=== PATIENT | female | born 1940 | race Caucasian/White ===

== ENCOUNTER 2024-08-01 14:18 | Emergency (ER) | payer OTHER, SELFPAY ==
--- NOTE | 2024-08-01 15:16 | PC.NURSE ---
PT did not answer when name was called from the lobby and was not found outside.
[2024-08-01 15:18] VITALS: BP 144/86; PULSE 73; RESP 16; TEMP 36.9; O2SAT 96; BMI 27.6
--- NOTE | 2024-08-01 15:37 | XR_ITS ---
Examination: Knee, left , 3 views Technique: Knee AP, lateral, oblique 3 views Date and time of exam: August 01, 2024 1544 hrs. Indications: Injury to the knee 2 weeks ago with knee pain. Findings: Severe narrowing medial joint space Significant osteoarthritis lateral patellofemoral joints No fracture Small to moderate knee effusion Impression: No fracture Small to moderate knee effusion
--- NOTE | 2024-08-01 17:18 | PD.EDFALL ---
ED Fall Injury RME/HPI General Chief Complaint: Fall Stated Complaint: LEFT LEG PAIN S/P FALL Time Seen by Provider: 08/01/24 15:06 Arrival date/time: 08/01/24 14:18 Patient is an 83-year-old female who presents to the emergency department complaining of left knee pain. Patient states she fell several days ago. She said she landed on her bilateral knees and had pain for a day or 2. Related Data Allergies Allergy/AdvReac Type Severity Reaction Status Date / Time milk Allergy Unknown Unverified 08/01/24 14:24 SEAFOOD Allergy Unknown Uncoded 08/01/24 14:24 Review of Systems Review of Systems Systems Reviewed: All systems reviewed, normal except as documented Past Medical History Social History SMOKING STATUS: Never smoker ED Exam Narrative Physical exam: GENERAL APPEARANCE: alert and oriented x 4, well-developed, well-nourished, no acute distress VITALS: All vitals were reviewed and the pulse ox is 96% on room air, which is normal according to my interpretation. HEENT: Normocephalic, atraumatic; pupils equal, round, reactive to light; EOMI; mucous membranes pink, moist; oropharynx clear NECK: Supple LUNGS: CTABL; no wheezes, no rales, no rhonchi HEART: Regular rate, regular rhythm; normal S1, S2; no murmurs ABDOMEN: non distended; normal BS; soft, no tenderness, no guarding, no rebound; no masses, no organomegaly, no hernia BACK: no CVA tenderness EXTREMITIES: atraumatic; no edema NEUROLOGIC: awake; alert and oriented x4; cranial nerves II-XII grossly intact; no focal sensory or motor deficits PSYCHIATRIC: appropriate mood and affect SKIN: warm, dry, normal color; no rashes; abrasion over the right knee Course Quality Measures none Orders Category Date Time Status Miscellaneous Nursing Order NOW Care 08/01/24 17:26 Completed baldo wrap [Splint / Immobilizer] STAT Care 08/01/24 20:41 Completed XR knee LT 3V Stat Exams 08/01/24 15:37 Completed Vital Signs Vital signs: Vital Signs Temperature 98.4 F 08/01/24 15:18 Pulse Rate 73 08/01/24 15:18 Respiratory Rate 16 08/01/24 15:18 Blood Pressure 144/86 H 08/01/24 15:18 Pulse Oximetry (%) 96 08/01/24 15:18 Oxygen Delivery Method Room Air 08/01/24 15:18 Fall Patient data External records reviewed:: [facility] previous records (Per chart review, patient has no previous ED visits or admissions to this facility.) Clinical information provided by:: patient Social determinants that could affect healthcare access:: none Patient has the following chronic illnesses:: none How is presenting disease/condition affected by chronic disease/condition?: no chronic disease Evaluation data The following diagnostics were reviewed and interpreted by me:: radiology exam(s) Lab and/or radiology exams considered but not ordered:: none Discharge Plan Plan Patient Disposition: HOME (Self Care) Disposition Comment: Stable for discharge Patient condition on transfer: Stable Prescriptions/Referrals Referrals: Lupe Whittington NP [Primary Care Provider] - In 1 week Problem List Clinical Impression: Contusion of knee Patient/Caregiver Discharge Instructions Discharge Activity: activity as tolerated Education Materials: Bruises (Contusions), ED Contusion, Lower Extremity Additional Instructions: Please follow-up with your primary care doctor within the next several days. Your x-ray showed no fractures or dislocations. Please return to the emergency department if you notice any worsening or if you do not improve within the next several days Print Language: [place] Citizen Stand Alone Forms: Maya Award Info., Patient Portal Info Letter
--- NOTE | 2024-08-01 17:19 | EDNOTE_ITS ---
ED Fall Injury RME/HPI General Chief Complaint: Fall Stated Complaint: LEFT LEG PAIN S/P FALL Time Seen by Provider: 08/01/24 15:06 Arrival date/time: 08/01/24 14:18 RME / HPI RME / HPI Narrative: Patient is a 83 year old female presenting to the ED stating she tripped and fell 3 days ago, no LOC or head trauma, complains of left knee pain. Does not rate or describe pain at this time. Denies any symptoms prior to fall. No further history reported a this time. Related Data Allergies Allergy/AdvReac Type Severity Reaction Status Date / Time milk Allergy Unknown Unverified 08/01/24 14:24 SEAFOOD Allergy Unknown Uncoded 08/01/24 14:24 Review of Systems Review of Systems Narrative Review of Systems: Gen: No fever, no chills, no weight loss EYES: No discharge, no visual changes, no pain HEENT: No ear pain, no congestion, no sore throat PULM: No shortness of breath, no cough, no congestion CV: No chest pain, no dyspnea on exertion, no palpitations GI: No nausea, no vomiting, no diarrhea, no pain, no constipation : No frequency, no urgency, no dysuria Musc/skel: +left knee pain. no back pain Skin: No rash Psyc: No hallucinations, no depression Heme/Lymph: No easy bleeding or bruising tendencies Neuro: No weakness, no headache Past Medical History Social History SMOKING STATUS: Never smoker ED Exam Narrative Physical exam: GEN. APPEARANCE: The patient is alert awake oriented X-3 in no distress, lying down comfortably, does not look ill/toxic. Patient has good eye contact. Patient is cooperative. VITALS: All vitals were reviewed and the pulse ox is 96% on room air which is normal according to my interpretation. HEENT: Normocephalic, atraumatic. Pupils are equal and reactive. Oral mucosa is moist. Patent Nares NECK: Supple, nontender, no thyromegaly, no meningismus, no JVD, no step offs CHEST: Symmetrical, atraumatic, and with equal expansion , Nontender on palpation no deformity and no crepitus. CARDIOVASCULAR: Heart regular rhythm no murmur or gallop rub or extra beats. LUNGS: Clear to auscultation bilaterally with symmetrical chest rise. No laboring tachypnea or wheezing. No intercostal subcostal retraction. No rales and no rhonchi. ABDOMEN: Soft, flat, nontender to palpation, no guarding or rebound tenderness. There are no abnormal masses palpated. Active and normal bowel sounds. EXTREMITIES: Abrasions to bilateral knees. Mild swelling to the left knee generally. No cyanosis. Patient is able to move all 4 extremities well, with full ROM and good CSM. SKIN: Warm and dry, no jaundice or rashes noted. MUSCULOSKELETAL: No lubar or midline bony tenderness. There is no CVA tenderness. No paraspinal muscle spasm or tenderness. NEURO: Patient is RUELAS x 4, Cranial nerves II through XII grossly intact. There is no focal neurologic deficits noted. GCS is 15, PNS and BUSINESS ANALYSIS PROFESSIONAL appear grossly intact. PSYCHIATRIC: Patient is in normal mood and affect, cooperative, no SI or HI or hallucinations. Course Quality Measures none Orders Category Date Time Status Miscellaneous Nursing Order NOW Care 08/01/24 17:26 Completed mj wrap [Splint / Immobilizer] STAT Care 08/01/24 20:41 Completed XR knee LT 3V Stat Exams 08/01/24 15:37 Completed Vital Signs Vital signs: Vital Signs Temperature 98.4 F 08/01/24 15:18 Pulse Rate 73 08/01/24 15:18 Respiratory Rate 16 08/01/24 15:18 Blood Pressure 144/86 H 08/01/24 15:18 Pulse Oximetry (%) 96 08/01/24 15:18 Oxygen Delivery Method Room Air 08/01/24 15:18 Fall MDM Narrative MDM Narrative:: Patient arrives with left knee pain several days after ground-level fall. There are some mild swelling to the left knee and some mild abrasions to bilateral knees. Plain films showed no fractures or dislocations. Patient given Mj wrap with crutches. Patient refused any and all pain meds including acetaminophen and ibuprofen. She has to follow-up with her primary care doctor within the next several days Patient data External records reviewed:: [facility] previous records Clinical information provided by:: patient Social determinants that could affect healthcare access:: none Patient has the following chronic illnesses:: none How is presenting disease/condition affected by chronic disease/condition?: no chronic disease Evaluation data The following diagnostics were reviewed and interpreted by me:: radiology exam(s) Lab and/or radiology exams considered but not ordered:: none Interpretation Summary: Ordering Physician: Davis Cleary MD Date of Service: 08/01/24 Procedure(s): XR knee LT 3V Accession Number(s): [id number] cc: Lupe Whittington NP; Nasim Rodriguez MD; Davis Cleary MD~ Examination: Knee, left , 3 views Technique: Knee AP, lateral, oblique 3 views Date and time of exam: August 01, 2024 1544 hrs. Indications: Injury to the knee 2 weeks ago with knee pain. Findings: Severe narrowing medial joint space Significant osteoarthritis lateral patellofemoral joints No fracture Small to moderate knee effusion Impression: No fracture Small to moderate knee effusion Dictated By: Nasim Rodriguez MD Signed By: <Electronically signed by Nasim Rodriguez MD in OV> 08/01/24 1700 Medications / Prescriptions Medications or Prescriptions considered but not ordered:: none Medication administrations:: see above Consultations Consultation(s) initiated? (list below): No Diagnosis Fall Differential Diagnosis: other (fracture, dislocation, ligament injury) Most likely diagnosis given after review of the tests above:: knee contusion Admission Indicated Admission indicated?: not indicated Admission Request Was there a request for admission?: No Disposition Plan Disposition Plan: Discharge Discharge Attestation Discharge Attestation: The patient and all family members were given an opportunity to ask questions and understood the discharge instructions. Discharge instructions specifically effects, indications for sooner follow up or return to the emergency department, and the expected course of current diagnosis. Patient condition: Stable Discharge Plan Plan Patient Disposition: HOME (Self Care) Disposition Comment: Stable for discharge Patient condition on transfer: Stable Prescriptions/Referrals Referrals: Lupe Whittington NP [Primary Care Provider] - In 1 week Problem List Clinical Impression: Contusion of knee Patient/Caregiver Discharge Instructions Discharge Activity: activity as tolerated Education Materials: Bruises (Contusions), ED Contusion, Lower Extremity Additional Instructions: Please follow-up with your primary care doctor within the next several days. Your x-ray showed no fractures or dislocations. Please return to the emergency department if you notice any worsening or if you do not improve within the next several days Print Language: [place] Stand Alone Forms: Maya Award Info., Patient Portal Info Letter
== END 2024-08-01 20:44 | disposition home or self-care (01) ==
PROVIDERS: Emergency Provider Emergency Medicine; PCP Nurse Practitioner Family
DX: S80.02XA Contusion of left knee, initial encounter (principal); W01.0XXA Fall on same level from slipping, tripping and stumbling without subsequent striking against object, initial encounter
CPT/HCPCS: 73562; 99283

== ENCOUNTER → 2024-11-09 | Outpatient (CLI) | payer MEDICARE, SELFPAY ==
[2024-11-09 16:16] LABS: Collection Type, Urine Clean Catch
[2024-11-09 18:17] LABS: Bacteria,Urine Rare; Bilirubin,Urine Negative (Negative); Blood,Urine 1+ (Negative); Clarity,Urine Turbid (Clear/Hazy); Color,Urine Lt-Yellow (Lt Yel-Yel); Glucose, Urine Negative (Negative); Hyaline Casts,Urine < 1 /hpf (0-1); Ketones,Urine Negative (Negative); Leukocyte Esterase,Urine Positive (Negative); Nitrite,Urine Negative (Negative); Protein,Urine Trace (Neg - Trace); RBC,Urine 8 /hpf (0-3); Specific Gravity,Urine 1.015 (1.001-1.035); Squamous Epithelial Cell,Urine < 1 /hpf (0-5); Urobilinogen,Urine Negative mg/dL (0.0-1.0); WBC,Urine 129 /hpf (0-5)
== END | disposition home or self-care (01) ==
LOC: SLDO 15:31
PROVIDERS: PCP Nurse Practitioner Family; Referring Provider Nurse Practitioner Family; Visit Provider Nurse Practitioner Family
DX: N30.00 Acute cystitis without hematuria (principal)
CPT/HCPCS: 81001; 87077; 87086; 87186

== ENCOUNTER → 2024-11-10 | Outpatient (CLI) | payer MEDICARE, SELFPAY ==
[2024-11-10 11:40] LABS: Glucose Estimated Average 169 mg/dL (80-131); Hemoglobin A1C 7.5 % Hgb (4.8-6.0)
[2024-11-10 11:47] LABS: Anion Gap 10 (7-16); BUN/Creatinine Ratio 20 Ratio (12-20); Blood Urea Nitrogen 22 mg/dL (9-23); Carbon Dioxide 28.1 mMol/L (20.0-31.0); Chloride 103 mMol/L (98-107); Creatinine (Component) 1.1 mg/dL (0.6-1.3); Glucose 186 mg/dL (74-106); Osmolality,Calculated 289 (275-295); Potassium 3.6 mMol/L (3.4-5.1); Sodium 141 mMol/L (136-145); eGFR 50 See Note
[2024-11-10 12:54] LABS: Urea Breath Test Negative (Negative)
== END | disposition home or self-care (01) ==
LOC: COPL 10:50
PROVIDERS: PCP Family Medicine; Referring Provider Nurse Practitioner Family; Visit Provider Nurse Practitioner Family
DX: E11.22 Type 2 diabetes mellitus with diabetic chronic kidney disease (principal); I12.9 Hypertensive chronic kidney disease with stage 1 through stage 4 chronic kidney disease, or unspecified chronic kidney disease; N18.30 Chronic kidney disease, stage 3 unspecified; R14.1 Gas pain
CPT/HCPCS: 36415; 80048; 83013; 83014; 83036

== ENCOUNTER → 2024-12-06 | Outpatient (CLI) | payer MEDICARE, SELFPAY ==
[2024-12-06 13:20] LABS: Anion Gap 7 (7-16); BUN/Creatinine Ratio 18 Ratio (12-20); Blood Urea Nitrogen 18 mg/dL (9-23); Calcium 9.3 mg/dL (8.3-10.6); Carbon Dioxide 30.8 mMol/L (20.0-31.0); Chloride 102 mMol/L (98-107); Glucose 154 mg/dL (74-106); Osmolality,Calculated 284 (275-295); Potassium 3.3 mMol/L (3.4-5.1); Sodium 140 mMol/L (136-145); eGFR 56 See Note
[2024-12-06 13:36] LABS: Glucose Estimated Average 177 mg/dL (80-131); Hemoglobin A1C 7.8 % Hgb (4.8-6.0)
== END | disposition home or self-care (01) ==
PROVIDERS: PCP Nurse Practitioner Family; Referring Provider Nurse Practitioner Family; Visit Provider Nurse Practitioner Family
DX: E11.22 Type 2 diabetes mellitus with diabetic chronic kidney disease (principal); N18.30 Chronic kidney disease, stage 3 unspecified; E11.65 Type 2 diabetes mellitus with hyperglycemia
CPT/HCPCS: 36415; 80048; 83036

== ENCOUNTER → 2025-03-14 | Outpatient (CLI) | payer MEDICARE, SELFPAY ==
[2025-03-14 13:06] LABS: Basophils # (Auto) 0.0 Thou/mm3 (0.0-0.2); Basophils % (Auto) 0 % (0-2.5); Eosinophils # (Auto) 0.2 Thou/mm3 (0.0-0.5); Eosinophils % (Auto) 3 % (0-10); Hematocrit 42.9 % (36.0-46.0); Hemoglobin 13.9 g/dL (12.0-16.0); Immature Granulocytes Auto 0.02 Thou/mm3 (0.00-0.00); Lymphocytes # (Auto) 1.6 Thou/mm3 (1.0-4.8); Lymphocytes % (Auto) 23 % (10-50); Mean Corpuscular HGB Conc 32.4 g/dl (31.0-37.0); Mean Corpuscular Hemoglobin 28.7 pg (25.0-35.0); Mean Corpuscular Volume 89 fL (80-100); Monocytes # (Auto) 0.5 Thou/mm3 (0.0-0.8); Monocytes % (Auto) 7 % (0-12); Neutrophils # (Auto) 4.7 Thou/mm3 (1.8-7.7); Neutrophils % (Auto) 67 % (37-80); Nucleated Red Blood Cell # 0.00 Thou/mm3 (0.00-0.00); Nucleated Red Blood Cell % 0 /100 WBC (0); Platelet Count 219 Thou/mm3 (140-440); RDW Standard Deviation 41.5 fL (36.4-46.3); Red Blood Count 4.85 Miln/mm3 (4.00-5.20); White Blood Count 6.9 Thou/mm3 (3.6-11.0)
[2025-03-14 13:12] LABS: Creatinine MALB Rnd Ur 46 mg/dL (30-125); Microalbumin Creat Ratio 9 mg/gCrea (<30); Microalbumin, Random Urine 4 mg/L (0-300)
[2025-03-14 13:13] LABS: Glucose Estimated Average 174 mg/dL (80-131); Hemoglobin A1C 7.7 % Hgb (4.8-6.0)
[2025-03-14 13:26] LABS: Alanine Aminotransferase 28 U/L (10-49); Albumin, Serum 4.2 gm/dL (3.4-4.8); Albumin/Globulin Ratio 1.6 (1.2-2.2); Alkaline Phosphatase 127 U/L (46-116); Anion Gap 10 (7-16); Aspartate Amino Transferase 25 U/L (0-34); BUN/Creatinine Ratio 12 Ratio (12-20); Bilirubin,Total 0.5 mg/dL (0.3-1.2); Blood Urea Nitrogen 12 mg/dL (9-23); Calcium 9.3 mg/dL (8.3-10.6); Calcium (Corrected) 9.3 mg/dL (8.5-10.1); Carbon Dioxide 30.2 mMol/L (20.0-31.0); Cardiac Risk Estimate 6.1 RATIO (3.7-5.6); Chloride 102 mMol/L (98-107); Cholesterol 176 mg/dL (132-200); Creatinine (Component) 1.0 mg/dL (0.6-1.3); Globulin 2.7 gm/dL (2.3-3.5); Glucose 159 mg/dL (74-106); HDL Cholesterol 29 mg/dL (40-60); LDL Cholesterol,Calculated 79 mg/dL (0-130); Osmolality,Calculated 285 (275-295); Potassium 3.2 mMol/L (3.4-5.1); Sodium 142 mMol/L (136-145); Thyroid Stimulating Hormone 4.64 uIU/mL (0.55-4.78); Total Protein 6.9 gm/dL (5.7-8.2); Triglycerides 342 mg/dL (30-150); eGFR 56 See Note
== END | disposition home or self-care (01) ==
LOC: COPL 12:17
PROVIDERS: PCP Nurse Practitioner Family; Referring Provider Nurse Practitioner Family; Visit Provider Nurse Practitioner Family
DX: E11.9 Type 2 diabetes mellitus without complications (principal); E78.2 Mixed hyperlipidemia; E53.9 Vitamin B deficiency, unspecified; I10 Essential (primary) hypertension; N18.30 Chronic kidney disease, stage 3 unspecified; Z00.00 Encounter for general adult medical examination without abnormal findings
CPT/HCPCS: 36415; 80053; 80061; 82043; 82570; 83036; 84443; 85025

== ENCOUNTER → 2025-06-13 | Outpatient (CLI) | payer MEDICARE, MEDICAID, SELFPAY ==
[2025-06-13 12:23] LABS: Anion Gap 12 (7-16); BUN/Creatinine Ratio 12 Ratio (12-20); Blood Urea Nitrogen 12 mg/dL (9-23); Calcium 9.9 mg/dL (8.3-10.6); Carbon Dioxide 29.7 mMol/L (20.0-31.0); Chloride 94 mMol/L (98-107); Creatinine (Component) 1.0 mg/dL (0.6-1.3); Glucose 132 mg/dL (74-106); Glucose Estimated Average 163 mg/dL (80-131); Hemoglobin A1C 7.3 % Hgb (4.8-6.0); Osmolality,Calculated 273 (275-295); Potassium 3.0 mMol/L (3.4-5.1); Sodium 136 mMol/L (136-145); eGFR 56 See Note
== END | disposition home or self-care (01) ==
LOC: COPL 11:00
PROVIDERS: PCP Family Medicine; Referring Provider Nurse Practitioner Family; Visit Provider Nurse Practitioner Family
DX: E11.22 Type 2 diabetes mellitus with diabetic chronic kidney disease (principal); N18.9 Chronic kidney disease, unspecified; E11.65 Type 2 diabetes mellitus with hyperglycemia
CPT/HCPCS: 36415; 80048; 83036

== ENCOUNTER 2025-08-05 19:09 | Inpatient (IN) | payer MEDICARE, MEDICAID, SELFPAY ==
[2025-08-05 19:11] VITALS: BMI 29.0
--- NOTE | 2025-08-05 19:14 | EKG_ITS ---
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
--- NOTE | 2025-08-05 19:25 | PD.EDABDPN ---
ED Abdominal Pain RME/HPI General Chief Complaint: Abdominal Pain Stated complaint: ABD PAIN, GAS PAIN IN CHEST, NAUSEA Time seen by provider: 08/05/25 19:33 Arrival date/time: 08/05/25 19:09 RME / HPI RME / HPI narrative: See MDM for Dr. Díaz's HPI Documentation. Related Data Allergies Allergy/AdvReac Type Severity Reaction Status Date / Time milk Allergy Unknown Verified 08/05/25 19:11 SEAFOOD Allergy Unknown Uncoded 08/05/25 19:11 Review of Systems Review of Systems Systems Reviewed: All systems reviewed, normal except as documented Past Medical History Past Medical History CARDIAC: Positive Hypercholesterolemia and Hypertension ENDOCRINE: Positive Diabetes Mellitus Type 2 Surgical History SURGICAL: Positive Abdominal Surgery and Hysterectomy ED Exam Narrative Physical exam: See MDM for Dr. Díaz's Physical Exam Documentation. Course Quality Measures none Orders Category Date Time Status Admit to Inpatient Status Routine Admission 08/05/25 22:34 Active Patient Condition Routine Admission 08/05/25 22:34 Ordered Activity as Tolerated Routine Care 08/05/25 22:35 Ordered Bedside Blood Glucose Q6HR Care 08/05/25 22:42 Active COVID-19 Screening Questionnaire NOW Care 08/05/25 21:12 Active COVID-19 Screening Questionnaire NOW Care 08/05/25 22:10 Active Decision to Admit X1 Care 08/05/25 22:10 Completed EKG (ED ONLY) *Do not use* NOW Care 08/05/25 19:14 Completed NPO NOW Care 08/05/25 21:05 Active Notify provider NEEDED Care 08/05/25 22:34 Active Saline [Insert IV] NOW Care 08/05/25 19:31 Active Straight [In and Out Catheter] X1 Care 08/05/25 19:31 Active Consult to General Surgery Stat Cons 08/05/25 22:38 Ordered Referral Physical Therapy Routine Cons 08/05/25 22:45 Active Diet NPO (NOW) Diet 08/05/25 21:[address] abdomen pelvis wo con Stat Exams 08/05/25 19:32 Completed EKG (ED Only) Stat Exams 08/05/25 19:14 Draft US gall bladder Stat Exams 08/05/25 19:32 Completed XR chest 1V portable Stat Exams 08/05/25 19:32 Completed Amylase Stat Lab 08/05/25 19:45 Completed BNP [B-Type Natriuretic Peptide] Stat Lab 08/05/25 19:45 Completed Basic Metabolic Panel AM DRAW Lab 08/06/25 05:00 Ordered Basic Metabolic Panel AM DRAW Lab 08/07/25 05:00 Ordered Basic Metabolic Panel AM DRAW Lab 08/08/25 05:00 Ordered Bilirubin,Direct Stat Lab 08/05/25 19:45 Completed Blood Culture (Lab) Stat Lab 08/05/25 19:45 Received CBC AM DRAW Lab 08/06/25 05:00 Ordered CBC AM DRAW Lab 08/07/25 05:00 Ordered CBC AM DRAW Lab 08/08/25 05:00 Ordered CBC Stat Lab 08/05/25 19:45 Completed CMP [Comprehensive Metabolic Panel] Stat Lab 08/05/25 19:45 Completed CRP [C-Reactive Protein] Stat Lab 08/05/25 19:45 Completed ESR [Sed Rate (ESR)] Stat Lab 08/05/25 19:45 Completed Lactate (Lactic Acid) Stat Lab 08/05/25 19:45 Completed Lipase Stat Lab 08/05/25 19:45 Completed Magnesium AM DRAW Lab 08/06/25 05:00 Ordered Magnesium Stat Lab 08/05/25 19:45 Completed Partial Thromboplastin Time Routine Lab 08/06/25 22:37 Ordered Procalcitonin Stat Lab 08/05/25 19:45 Completed Prothrombin Time with INR Routine Lab 08/06/25 22:37 Ordered TSH [Thyroid Stimulating Hormone] Stat Lab 08/05/25 19:45 Completed Troponin I Stat Lab 08/05/25 19:45 Completed UA, C/S IF [Urinalysis, C/S if Indicated] Stat Lab 08/05/25 21:24 Completed Urine Culture Stat Lab 08/05/25 21:24 Received Acetaminophen Tab [Tylenol Tab] Med 08/05/25 22:34 Active 650 mg PO Q6H PRN Dextrose 50% Syr [D50w Syringe Abboject] Med 08/05/25 22:42 Active 25 ml IV Q15MIN PRN Dextrose 50% Syr [D50w Syringe Abboject] Med 08/05/25 22:42 Active 50 ml IV Q15MIN PRN Glucagon Inj Med 08/05/25 22:42 Active 1 mg IM Q15MIN PRN Heparin Inj Med 08/06/25 14:00 Active 5,000 unit SC Q8HR INSULIN LISPRO (AdmeLOG) [HumaLOG] Med 08/06/25 07:30 Active See Protocol SC AC Insulin Degludec Inj Med 08/05/25 22:45 Active 5 unit SC QDAY Milk Of Magnesia Susp [Mom Susp] Med 08/05/25 22:36 Discontinued 30 ml PO X1 ONE Morphine* Inj Med 08/05/25 22:34 Active 2 mg IVP Q2H PRN Morphine* Inj Med 08/05/25 19:31 Discontinued 4 mg IV X1 ONE Ondansetron Inj [Zofran Inj] Med 08/05/25 19:31 Discontinued 4 mg IVP X1 ONE POTASSIUM CHL 10% Liq 15 ML Med 08/05/25 21:04 Discontinued 40 meq PO X1 ONE Ringers Lactated 1000 ml [Lactated Ringers] 1,000 ml Med 08/05/25 19:31 Discontinued IV 1,000 mls/hr Ringers Lactated 1000 ml [Lactated Ringers] 1,000 ml Med 08/05/25 22:45 Active IV 75 mls/hr cefTRIAXone/D5w 1gm IV premix [Rocephin/D5w 1gm IV Med 08/06/25 09:00 Active premix] 1 gm in 50 ml IV QDAY cefTRIAXone/D5w 1gm IV premix [Rocephin/D5w 1gm IV Med 08/05/25 21:04 Discontinued premix] 1 gm in 50 ml IV X1 metroNIDAZOLE/NS 500 MG IVPB [Flagyl 500 mg IV] Med 08/06/25 06:00 Active 500 mg in 100 ml IV Q8HR metroNIDAZOLE/NS 500 MG IVPB [Flagyl 500 mg IV] Med 08/05/25 21:04 Discontinued 500 mg in 100 ml IV X1 Code Status Routine Oth 08/05/25 22:34 Ordered Oxygen Delivery PRN RT 08/05/25 22:35 Active Vital Signs Vital signs: Vital Signs Temperature 99.5 F 08/05/25 19:57 Pulse Rate 85 08/05/25 19:57 Respiratory Rate 15 08/05/25 19:57 Blood Pressure 180/90 H 08/05/25 19:57 Pulse Oximetry (%) 95 08/05/25 19:57 Abdominal Pain MDM MDM Narrative MDM Narrative:: This section includes all my notes and documentations, including HPI, PE, and ED course. Vernon Díaz MD HPI: 84 y/o female with Hypercholesterolemia, Hypertension, and Type 2 DM here with lower abdominal pain and nausea. Has trouble describing the quality and quantity of the pain. Uncertain of exacerbating factors or relieving factors. Couldn't eat dinner. No fever. No urinary symptoms. No other complaints. ROS: All negative except as documented in HPI. Physical Exam: General: Alert and oriented. In obvious pain. Eyes: Conjunctivae and lids clear. ENT: No nasal congestion. Neck: Supple. Heart: RRR. Lungs: No respiratory distress. Good air movement. No rhonchi, wheezing, rales. Abdomen: Soft with RUQ and RLQ tenderness. Decreased bowel sounds. No distension. No rebound or guarding. Back: No CVA tenderness. Skin: Warm and dry. Neuro: Alert and oriented X 3. I reviewed all diagnostic test results: My interpretation of the EKG is: Sinus rhythm (81 bpm) with nonspecific ST-T changes. My interpretation of the chest x-ray is NAD. My review of the Abdomen/Pelvis CT report is acute appendicitis. My review of the Gallbladder US report is NAD. Blood tests remarkable for WBC 13.8, ESR 45, K 3.3, Ca 10.9. UA showed positive nitrite, positive leukocyte esterase, 19 WBC, and 1+ bacteria. At this point, diagnoses include: Appendicitis UTI (urinary tract infection) Hypokalemia Hypercalcemia Treatment here included: IVF Morphine 4 mg IV Zofran 4 mg IV Rocephin 1 G IV Flagyl 500 mg IV Oral KCl 40 mEq Patient remained stable. I discussed the case with Dr. Amaya (surgeon) and our hospitalist. About the presentation and exam and diagnostics and treatments here. And need of further care in the hospital. Will accept the patient. Vernon Díaz MD Patient data External records reviewed:: [facility] previous records (Reviewed prior ED records from 08/01/24. Patient was seen for Contusion of knee.) Clinical information provided by:: patient Social determinants that could affect healthcare access:: none Patient has the following chronic illnesses:: Hypercholesterolemia, Hypertension, Diabetes Mellitus Type 2 How is presenting disease/condition affected by chronic disease/condition?: no chronic disease Evaluation data The following diagnostics were reviewed and interpreted by me:: lab results, radiology exam(s) and EKG tracing(s) (My interpretation of the EKG is: Sinus rhythm (81 bpm) with nonspecific ST-T changes. Vernon Díaz MD) Lab and/or radiology exams considered but not ordered:: None Interpretation Summary: I reviewed all diagnostic test results: My interpretation of the EKG is: Sinus rhythm (81 bpm) with nonspecific ST-T changes. My interpretation of the chest x-ray is NAD. My review of the Abdomen/Pelvis CT report is acute appendicitis. My review of the Gallbladder US report is NAD. Blood tests remarkable for WBC 13.8, ESR 45, K 3.3, Ca 10.9. UA showed positive nitrite, positive leukocyte esterase, 19 WBC, and 1+ bacteria. Medications / Prescriptions Medications or Prescriptions considered but not ordered:: None Medication administrations:: Medication Administration History Acetaminophen (Acetaminophen 325 Mg Tablet) 650 mg PO Q6H PRN PRN Reason: Fever >101.5 Stop: 09/04/25 22:33 Dextrose (Dextrose 50%-Water Inj 50 Ml Syringe) 25 ml IV Q15MIN PRN PRN Reason: BG 50-70 responsive npo pt Stop: 09/04/25 22:41 Dextrose (Dextrose 50%-Water Inj 50 Ml Syringe) 50 ml IV Q15MIN PRN PRN Reason: BG <50 OR BG <70 & pt unresponsive Stop: 09/04/25 22:41 Glucagon (Glucagon Inj 1 Mg Vial) 1 mg IM Q15MIN PRN PRN Reason: BG <70, and no IV access Heparin Sodium (Porcine) (Heparin Sod Inj 5000 Unit/Ml Vial) 5,000 unit SC Q8HR [facility] Stop: 08/20/25 13:59 Lactated Ringer's (Lactated Ringers) 1,000 mls @ 75 mls/hr IV .[id number] RANDAL Stop: 09/04/25 22:44 Last Admin: 08/06/25 00:29 Dose: 75 mls/hr Documented By: FANY Ceftriaxone Sodium/Dextrose (Rocephin/D5w 1gm Iv Premix) 1 gm in 50 mls @ 100 mls/hr IV QDAY [facility] Stop: 08/13/25 08:59 Metronidazole (Flagyl 500 Mg Iv) 500 mg in 100 mls @ 200 mls/hr IV Q8HR [facility] Stop: 08/13/25 05:59 Insulin Degludec (Insulin Degludec 5 Unit/0.05 Ml (Per 5 Units)) 5 unit SC QDAY [facility] Stop: 09/04/25 22:44 Last Admin: 08/06/25 00:36 Dose: Not Given Documented By: GD Non-Admin Reason: Patient Refused Insulin Human Lispro (Insulin Lispro (Admelog) 1 Unit/0.01 Ml Unit) 0 unit SC AC [facility]; Protocol Stop: 09/05/25 07:29 Morphine Sulfate (Morphine Sulf Inj 4 Mg/Ml Vial) 2 mg IVP Q2H PRN PRN Reason: PAIN SCALE 7-10 (Severe Stop: 08/10/25 22:33 Discontinued Medications Lactated Ringer's (Lactated Ringers) 1,000 mls @ 1,000 mls/hr IV .Q1H ONE Stop: 08/05/25 20:30 Last Infusion: 08/05/25 20:52 Dose: Infused Documented By: JUAN M Admin: 08/05/25 19:44 Dose: 1,000 mls/hr Documented By: JUAN M Ceftriaxone Sodium/Dextrose (Rocephin/D5w 1gm Iv Premix) 1 gm in 50 mls @ 100 mls/hr IV X1 ONE Stop: 08/05/25 21:33 Last Infusion: 08/05/25 22:19 Dose: Infused Documented By: Admin: 08/05/25 21:45 Dose: 100 mls/hr Documented By: Metronidazole (Flagyl 500 Mg Iv) 500 mg in 100 mls @ 100 mls/hr IV X1 ONE Stop: 08/05/25 22:03 Last Infusion: 08/05/25 23:39 Dose: Infused Documented By: Admin: 08/05/25 22:26 Dose: 100 mls/hr Documented By: Magnesium Hydroxide (Milk Of Magnesia Susp 30 Ml Udc) 30 ml PO X1 ONE; Protocol Stop: 08/05/25 22:37 Last Admin: 08/06/25 00:24 Dose: Not Given Documented By: GD Non-Admin Reason: NPO Morphine Sulfate (Morphine Sulf Inj 4 Mg/Ml Vial) 4 mg IV X1 ONE Stop: 08/05/25 19:32 Last Admin: 08/05/25 19:48 Dose: Not Given Documented By: JUAN M Non-Admin Reason: Patient Refused Ondansetron HCl (Ondansetron Inj 2 Mg/Ml Inj 2 Ml) 4 mg IVP X1 ONE; Protocol Stop: 08/05/25 19:32 Last Admin: 08/05/25 19:43 Dose: 4 mg Documented By: JUAN M Potassium Chloride (Potassium Chloride 10% 20 Meq/15 Ml Udc) 40 meq PO X1 ONE Stop: 08/05/25 21:05 Last Admin: 08/05/25 21:44 Dose: 40 meq Documented By: JUAN M Treatment here FROM ME included: IVF Morphine 4 mg IV Zofran 4 mg IV Rocephin 1 G IV Flagyl 500 mg IV Oral KCl 40 mEq Consultations Consultation(s) initiated? (list below): Yes Consultation #1 (Physician, Specialty, Details): I discussed the case with Dr. Amaya (surgeon) and our hospitalist. About the presentation and exam and diagnostics and treatments here. And need of further care in the hospital. Will accept the patient. Diagnosis Differential diagnosis abdominal pain: acute appendicitis, calculus of kidney, constipation, diverticulitis, endometriosis, gastroenteritis, pancreatitis and small bowel obstruction Most likely diagnosis given after review of the tests above:: Appendicitis UTI (urinary tract infection) Hypokalemia Hypercalcemia Admission Indicated Admission indicated?: indicated Explain why admission is indicated or not indicated:: Appendicitis UTI (urinary tract infection) Hypokalemia Hypercalcemia Admission Request Was there a request for admission?: Yes Admission Attestation Admission request attestation: Discussed case with Hospitalist service regarding admission. Discussed patients ED course, exam findings, labs, and radiology results. Agreed to accept the patient for admission. Disposition Plan Disposition Plan: Admit Discharge Plan Plan Patient Disposition: Admit Acute Care w/in Hospital Problem List Clinical Impression: Appendicitis, UTI (urinary tract infection), Hypokalemia, Hypercalcemia
--- NOTE | 2025-08-05 19:32 | XR_ITS ---
Examination: Abdomen sonogram, Limited Date and time of exam: August 05, 2025, 2048 hours INDICATIONS: Right upper abdominal pain and tenderness today Technique: Real-time sanchez scale transabdominal sonographic images of the upper abdomen obtained. Findings: Normal gallbladder Common bile duct enlarged 0.8 cm no stones Pancreatic head 2.7 cm Liver 14.5 cm fatty infiltration no focal liver lesions Normal hepatopetal portal venous flow Patent IVC IMPRESSION: Normal gallbladder No common bile duct stones
--- NOTE | 2025-08-05 19:32 | XR_ITS ---
EXAMINATION: AP chest single view TECHNIQUE: AP portable upright chest single view Date and time: August 05, 2025, 2010 hours INDICATIONS: Chest pain shortness of breath today. FINDINGS: Minor prominence left ventricle Mild vascular congestion. Early pneumonia left base obscuring detail left hemidiaphragm Right lung clear IMPRESSION: Early pneumonia left base
--- NOTE | 2025-08-05 19:32 | XR_ITS ---
Examination: CT abdomen and pelvis without contrast. Coronal 3-D reconstructions. Sagittal 2-D reconstructions. Date and time of exam: August 05, 2025, 195 hours INDICATIONS: Lower abdominal pain nausea vomiting today CTDI: vol (mGy): 7.81 DLP: (mGycm): 440 Technique: Axial images of the abdomen have been obtained, 3 mm slice thickness Intravenous contrast material has not been administered. Low dose protocols were performed. One or more of the following dose reduction techniques were used; automated exposure control, adjustment of the mA and/or KV according to patient size, use of iterative reconstruction technique. Findings: 4 mm pulmonary nodule left lower lobe No visualized liver or splenic lesion No gallstones No pancreatic or adrenal mass 4 mm left renal calculus Moderate renal scar formation Aorta normal size enlarged inflamed appendix below and retrocecal Significant pericecal inflammatory change No pelvic abscess Colonic diverticulosis Urinary bladder intact IMPRESSION: 4 mm pulmonary nodule left lower lobe, consider ELECTIVE CT chest without contrast follow-up Acute appendicitis, retrocecal appendix No pelvic abscess
[2025-08-05] MEDS: ONDANSETRON INJ 2 MG/ML INJ 2 ML 4 MG IVP (19:43)
[2025-08-05] MEDS: RINGERS LACTATED 1000 ML 1,000 ML IV (19:44)
[2025-08-05 19:57] VITALS: BP 180/90; PULSE 85; RESP 15; TEMP 37.5; O2SAT 95
[2025-08-05 20:14] LABS: Lactate (Lactic Acid) 1.7 mMol/L (0.4-2.0)
[2025-08-05 20:18] LABS: Sed Rate (ESR) 45 mm/hr (0-30)
[2025-08-05 20:21] LABS: Basophils # (Auto) 0.0 Thou/mm3 (0.0-0.2); Basophils % (Auto) 0 % (0-2.5); Eosinophils # (Auto) 0.2 Thou/mm3 (0.0-0.5); Eosinophils % (Auto) 1 % (0-10); Hematocrit 46.3 % (36.0-46.0); Hemoglobin 15.3 g/dL (12.0-16.0); Immature Granulocytes Auto 0.05 Thou/mm3 (0.00-0.00); Lymphocytes # (Auto) 1.2 Thou/mm3 (1.0-4.8); Lymphocytes % (Auto) 8 % (10-50); Mean Corpuscular HGB Conc 33.0 g/dl (31.0-37.0); Mean Corpuscular Hemoglobin 27.7 pg (25.0-35.0); Mean Corpuscular Volume 84 fL (80-100); Monocytes # (Auto) 0.7 Thou/mm3 (0.0-0.8); Monocytes % (Auto) 5 % (0-12); Neutrophils # (Auto) 11.8 Thou/mm3 (1.8-7.7); Neutrophils % (Auto) 85 % (37-80); Nucleated Red Blood Cell # 0.00 Thou/mm3 (0.00-0.00); Nucleated Red Blood Cell % 0 /100 WBC (0); Platelet Count 256 Thou/mm3 (140-440); RDW Standard Deviation 38.5 fL (36.4-46.3); Red Blood Count 5.53 Miln/mm3 (4.00-5.20); White Blood Count 13.8 Thou/mm3 (3.6-11.0)
[2025-08-05 20:46] LABS: B-Type Natriuretic Peptide 22 pg/mL (0-100)
[2025-08-05 20:59] LABS: Alanine Aminotransferase 23 U/L (10-49); Albumin, Serum 5.1 gm/dL (3.4-4.8); Albumin/Globulin Ratio 1.6 (1.2-2.2); Alkaline Phosphatase 134 U/L (46-116); Amylase 57 U/L (30-118); Anion Gap 14 (7-16); Aspartate Amino Transferase 28 U/L (0-34); BUN/Creatinine Ratio 17 Ratio (12-20); Bilirubin,Direct 0.2 mg/dL (0.0-0.3); Bilirubin,Total 0.7 mg/dL (0.3-1.2); Blood Urea Nitrogen 17 mg/dL (9-23); C-Reactive Protein 1.4 mg/dL (0.0-0.9); Calcium 10.9 mg/dL (8.3-10.6); Calcium (Corrected) 10.9 mg/dL (8.5-10.1); Carbon Dioxide 25.8 mMol/L (20.0-31.0); Chloride 96 mMol/L (98-107); Creatinine (Component) 1.0 mg/dL (0.6-1.3); Estimated Creatinine Clearance 41.9 mL/min (>60); Globulin 3.1 gm/dL (2.3-3.5); Glucose 150 mg/dL (74-106); Lipase 46 U/L (12-53); Magnesium 2.0 mg/dL (1.6-2.6); Osmolality,Calculated 276 (275-295); Potassium 3.3 mMol/L (3.4-5.1); Procalcitonin < 0.04 ng/ml (0.0-0.49); Sodium 136 mMol/L (136-145); Thyroid Stimulating Hormone 3.75 uIU/mL (0.55-4.78); Total Protein 8.2 gm/dL (5.7-8.2); Troponin I < 0.020 ng/mL (0.0-0.045); eGFR 56 See Note
[2025-08-05 21:38] LABS: Collection Type, Urine Clean Catch
[2025-08-05] MEDS: POTASSIUM CHLORIDE 10% 20 MEQ/15 ML UDC 40 MEQ PO (21:44)
[2025-08-05] MEDS: cefTRIAXone/D5w 1gm IV premix 1 GM/50 ML BAG IV (21:45)
[2025-08-05 21:47] LABS: Bacteria,Urine 1+; Bilirubin,Urine Negative (Negative); Blood,Urine Negative (Negative); Clarity,Urine Clear (Clear/Hazy); Color,Urine Lt-Yellow (Lt Yel-Yel); Glucose, Urine 4+ (Negative); Ketones,Urine Trace (Negative); Leukocyte Esterase,Urine Positive (Negative); Nitrite,Urine Positive (Negative); PH,Urine 6.0 (5.0-7.0); Protein,Urine Negative (Neg - Trace); RBC,Urine 1 /hpf (0-3); Specific Gravity,Urine 1.017 (1.001-1.035); Squamous Epithelial Cell,Urine < 1 /hpf (0-5); Urobilinogen,Urine Negative mg/dL (0.0-1.0); WBC,Urine 19 /hpf (0-5)
[2025-08-05 21:48] LABS: Culture Indicated,Urine Yes
[2025-08-05 22:03] VITALS: BP 174/97; PULSE 96; RESP 18; TEMP 37.1; O2SAT 95
[2025-08-05] MEDS: metroNIDAZOLE/NS 500 MG IVPB 500 MG/100 ML BAG 100 MG IV (22:26)
[2025-08-05 23:04] VITALS: BP 163/91; RESP 18
[2025-08-06] VITALS (20 sets, daily range): BP systolic 117–182; BP diastolic 67–96; PULSE 80–93; RESP 16–25; TEMP 36.3–37.1; O2SAT 90–95; BMI 28.6
[2025-08-06] MEDS: RINGERS LACTATED 1000 ML 1,000 ML 75 ML IV ×2 (00:29→21:59)
--- NOTE | 2025-08-06 00:37 | PC.NURSE ---
PT refused 0000 dose of degludec. RN educated patient on medication. Pt still refuses medication.
--- NOTE | 2025-08-06 00:41 | PC.NURSE ---
Pt cannot recall name of home medications. Connor will be able to bring home medications in the morning.
[2025-08-06] MEDS: metroNIDAZOLE/NS 500 MG IVPB 500 MG/100 ML BAG 200 MG IV ×3 (05:20→22:00)
[2025-08-06 06:25] LABS: Basophils # (Auto) 0.0 Thou/mm3 (0.0-0.2); Basophils % (Auto) 0 % (0-2.5); Eosinophils # (Auto) 0.0 Thou/mm3 (0.0-0.5); Eosinophils % (Auto) 0 % (0-10); Hematocrit 45.5 % (36.0-46.0); Hemoglobin 15.0 g/dL (12.0-16.0); Immature Granulocytes Auto 0.06 Thou/mm3 (0.00-0.00); Lymphocytes # (Auto) 0.8 Thou/mm3 (1.0-4.8); Lymphocytes % (Auto) 5 % (10-50); Mean Corpuscular HGB Conc 33.0 g/dl (31.0-37.0); Mean Corpuscular Hemoglobin 28.0 pg (25.0-35.0); Mean Corpuscular Volume 85 fL (80-100); Monocytes # (Auto) 1.1 Thou/mm3 (0.0-0.8); Monocytes % (Auto) 7 % (0-12); Neutrophils # (Auto) 13.4 Thou/mm3 (1.8-7.7); Neutrophils % (Auto) 87 % (37-80); Nucleated Red Blood Cell # 0.00 Thou/mm3 (0.00-0.00); Nucleated Red Blood Cell % 0 /100 WBC (0); Platelet Count 221 Thou/mm3 (140-440); RDW Standard Deviation 39.0 fL (36.4-46.3); Red Blood Count 5.35 Miln/mm3 (4.00-5.20); White Blood Count 15.4 Thou/mm3 (3.6-11.0)
[2025-08-06 06:39] LABS: Anion Gap 13 (7-16); BUN/Creatinine Ratio 13 Ratio (12-20); Blood Urea Nitrogen 13 mg/dL (9-23); Calcium 9.8 mg/dL (8.3-10.6); Carbon Dioxide 26.9 mMol/L (20.0-31.0); Chloride 98 mMol/L (98-107); Creatinine (Component) 1.0 mg/dL (0.6-1.3); Estimated Creatinine Clearance 41.6 mL/min (>60); Glucose 181 mg/dL (74-106); Magnesium 1.6 mg/dL (1.6-2.6); Osmolality,Calculated 280 (275-295); Potassium 3.8 mMol/L (3.4-5.1); Sodium 138 mMol/L (136-145); eGFR 56 See Note
[2025-08-06] MEDS: KETOROLAC INJ 30 MG/ML VIAL 15 MG IVP (07:25)
--- NOTE | 2025-08-06 07:29 | PC.NURSE ---
Pt refuses insulin shots. Pt educated on benefits of insulin. Pt still redused.
--- NOTE | 2025-08-06 07:44 | PD.HHHP ---
Documentation for date of: 08/05/25 HPI - Hospitalist History of Present Illness History of Present Illness: Acute appedicitis History of present illness: 84-year-old female with PMH of hypertension, hyperlipidemia, and type 2 diabetes mellitus presented to ED for complaints of abdominal pain, nausea. Per patient symptoms started after having lunch 1 day prior to admission, pain started diffusely over entire abdomen but later appeared to be more intense around right lower quadrant of her abdomen, she endorses nausea but no vomiting. Patient denies any other symptoms of chest pain, shortness of breath, symptoms, reports last bowel movement 2 days prior which is normal for patient and was normal at that time. In the ED patient's vitals were stable and labs were only noted for leukocytosis, mild hypokalemia, hypocalcemia and CRP elevation while UA was noted for pyuria and bacteriuria. Imagings showed findings consistent acute appendicitis, general surgery were consulted and will evaluate patient in a.m. Patient was admitted for further management of acute appendicitis. Review of Systems Review of Systems Systems Reviewed: All systems reviewed, normal except as documented Past Medical History Past Medical History NEUROLOGIC: Negative Seizures CARDIAC: Positive Cardiac Disorders, Hypercholesterolemia and Hypertension; Negative Congestive Heart Failure RESPIRATORY: Negative Chronic Obstructive Pulmonary Disease (COPD) GENITOURINARY: Negative Renal Disease ENDOCRINE: Positive Diabetes Mellitus Type 2; Negative Diabetes Mellitus Type 1 OTHER HISTORY: Negative Blood Transfusions, Blood Transfusion Reaction or Anesthesia Reactions Surgical History SURGICAL: Positive Abdominal Surgery and Hysterectomy Social History SMOKING STATUS: Never smoker Meds Home Medications and Allergies Home Medications ?Medication ?Instructions ?Recorded ?Confirmed ?Type dapagliflozin propanediol 10 mg 10 mg PO QDAY 08/06/25 08/06/25 History tablet (Farxiga) gemfibrozil 600 mg tablet 600 mg PO BID 08/06/25 08/06/25 History hydrochlorothiazide 25 mg tablet 25 mg PO QDAY 08/06/25 08/06/25 History potassium chloride 8 mEq 8 meq PO QDAY 08/06/25 08/06/25 History tablet,extended release Allergies Allergy/AdvReac Type Severity Reaction Status Date / Time milk Allergy Unknown Verified 08/05/25 19:11 SEAFOOD Allergy Unknown Uncoded 08/05/25 19:11 Exam Vital Signs Temp Pulse Resp BP Pulse Ox O2 Del Method 98.8 F 87 17 155/93 H 93 L Room Air 08/06/25 04:00 08/06/25 04:00 08/06/25 04:00 08/06/25 04:00 08/06/25 04:00 08/06/25 04:00 Narrative General: Elderly and pleasant, in no distress, normal mood and affect. HEENT: Normocephalic, atraumatic, anicteric, EOM intact, PERRLA, moist mucous membranes. Heart: RRR, no murmur or gallop. Lungs: Clear to auscultation with equal breath sounds bilaterally. Abdomen: Bowel sounds normal, nondistended, generalized tenderness with guarding and RLQ Extremities: Sensation, circulation &motor function intact and equal in all extremities. Neurologic: Alert and oriented to name, place and date of , CN II-XII intact, able to move all extremities, DTRs normal Skin: Warm, dry, no rashes or ecchymosis noted. Results - Hospitalist Labs Diagrams: 08/06/25 05:50 08/06/25 05:50 Labs: Short CBC 08/05/25 08/06/25 Range/Units 19:45 05:50 WBC 13.8 H 15.4 H (3.6-11.0) Thou/mm3 Hgb 15.3 15.0 (12.0-16.0) g/dL Hct 46.3 H 45.5 (36.0-46.0) % Plt Count 256 221 D (140-440) Thou/mm3 [facility] 08/05/25 08/06/25 19:45 05:50 Sodium 136 138 Potassium 3.3 L 3.8 D Chloride 96 L 98 Carbon Dioxide 25.8 26.9 BUN 17 13 Creatinine 1.0 1.0 Glucose 150 H 181 H Calcium 10.9 H 9.8 Cardiac Enzymes 08/05/25 Range/Units 19:45 Troponin I < 0.020 (0.0-0.045) ng/mL Liver Function 08/05/25 Range/Units 19:45 Total Bilirubin 0.7 (0.3-1.2) mg/dL Direct Bilirubin 0.2 (0.0-0.3) mg/dL AST 28 (0-34) U/L ALT 23 (10-49) U/L Alkaline Phosphatase 134 H (46-116) U/L Albumin 5.1 H (3.4-4.8) gm/dL Urine 08/05/25 Range/Units 21:24 Urine Color Lt-Yellow (Lt Yel-Yel) Urine Clarity Clear (Clear/Hazy) Urine pH 6.0 (5.0-7.0) Ur Specific [place] 1.017 (1.001-1.035) Urine Protein Negative (Neg - Trace) Urine Glucose (UA) 4+ A (Negative) Assessment & Plan -Hospitalist Additional Assessment 84-year-old female with PMH of hypertension, hyperlipidemia, and type 2 diabetes mellitus admitted for further management of acute appendicitis. #Acute Appendicitis Keep patient n.p.o. Start ceftriaxone and metronidazole Pain management Nausea management Maintenance IV fluids #Asymptomatic UTI Patient reports recurrent episodes of UTI requiring antibiotic UA consistent with UTI Follow-up UCX Patient on antibiotic for acute appendicitis #Hypokalemia Mild. Continue to monitor and replete #NIDDM II Patient started on insulin sliding scale Follow-up A1c #HTN Hydralazine as needed #Left lung pulmonary nodule Incidentally found on CT imaging showing a 4 mm nodule Patient has no prior history of smoking. Recommend outpatient follow-up Diet:NPO DVT: Mechanical Code: Full code Quality Measures Quality Measures VTE prophylaxis Advance care planning discussed with:: patient and other (Cousin)
[2025-08-06] MEDS: cefTRIAXone/D5w 1gm IV premix 1 GM/50 ML BAG IV (08:03)
[2025-08-06 08:18] LABS: INR 1.0 (0.9-1.3); Partial Thromboplastin Time 26.1 Seconds (22.0-36.0); Prothrombin Time 10.9 Seconds (9.0-12.2)
--- NOTE | 2025-08-06 09:16 | PD.SURCONS ---
HPI Consult details Consult date: 08/06/25 Reason for consultation narrative: The patient was seen in consultation because of acute appendicitis History of present illness: History of present was revealed the patient was in normal condition until yesterday afternoon when she started developing severe pain in the right side of the abdomen. Patient denies any vomiting and she has had no such pains in the past. Patient is very active despite her age of 84 years and lives alone. She is and in the past she was working as a teacher until 3 years ago. She has history of arthritis and diabetes and hypertension past surgery consist of bilateral breast reduction 30 years ago and hysterectomy Past Medical History Past Medical History NEUROLOGIC: Negative Seizures CARDIAC: Positive Cardiac Disorders, Hypercholesterolemia and Hypertension; Negative Congestive Heart Failure RESPIRATORY: Negative Chronic Obstructive Pulmonary Disease (COPD) GENITOURINARY: Negative Renal Disease ENDOCRINE: Positive Diabetes Mellitus Type 2; Negative Diabetes Mellitus Type 1 OTHER HISTORY: Negative Blood Transfusions, Blood Transfusion Reaction or Anesthesia Reactions Surgical History SURGICAL: Positive Abdominal Surgery and Hysterectomy Social History SMOKING STATUS: Never smoker Meds Home Medications and Allergies Allergies Allergy/AdvReac Type Severity Reaction Status Date / Time milk Allergy Unknown Verified 08/05/25 19:11 SEAFOOD Allergy Unknown Uncoded 08/05/25 19:11 Exam Vital Signs Temp Pulse Resp BP Pulse Ox O2 Del Method 97.3 F 93 22 H 181/95 H 91 L Room Air 08/06/25 07:58 08/06/25 07:58 08/06/25 07:58 08/06/25 07:58 08/06/25 07:58 08/06/25 07:58 Narrative Exam Physical examination revealed a very pleasant 84-year-old white female who appeared to be in stated age. Her vital signs are normal other than tachycardia with a heart rate around 93 Constitutional Constitutional: severe distress Routine Chest/Breast/Axilla Exam Comments: Examination showed surgical scar on both the breast from breast reduction Routine Respiratory Exam Comments: Patient does not have any wheezing or rales on auscultation Routine Cardiovascular Exam Comments: Sinus rhythm Routine Abdominal Exam Comments: Abdomen revealed mild distention and significant tenderness over the right lower quadrant and in the lower abdomen. Patient has not had a BM in couple of days Routine Rectal Exam Comments: Deferred Routine Exam Comments: Deferred Routine Extremities Exam Comments: Within normal limits Results Results: Laboratory Laboratory Narrative: Patient's laboratory workup showed leukocytosis around 15,400 with a shift to the left with 87 neutrophils. The chemistry is within normal limits Results: Imaging Imaging narrative: CT scan of the abdomen showed acute appendicitis with a retrocecal appendix. Chest x-ray revealed possible early left lower lobe infiltrate Assessment & Plan Additional Assessment Additional comments: Impression: Acute appendicitis query retrocecal Diabetes mellitus under control Hypertension Arthritis Plan Plan: Advised patient to undergo laparoscopic appendectomy or open appendectomy. The procedure was explained to her in detail including potential complications like perforation while handling the appendix bleeding and injury to the internal organs requiring more surgery etc. She is agreeable. She has been started on antibiotics and she will be taken to the operating room today
--- NOTE | 2025-08-06 09:36 | PC.CC ---
Measurement And Sensing Technician (ARMANDO) Bernarda attempted to complete assessment. Per Roro, patient is in surgery. SW will follow-up on 08/07/2025.
--- NOTE | 2025-08-06 11:37 | PD.SUROPNT ---
Date of Procedure 08/06/25 Pre Op Diagnosis Acute appendicitis Post Op Diagnosis Acute appendicitis with perforation and extensive inflammation and free purulent peritonitis Procedure Attempted laparoscopic appendectomy Opened up and Findings Patient is found to have ruptured appendicitis which is gangrenous also. Patient had a large fecalith very close to the base of the appendix which could not be easily seen. Patient had a free pass and caused owen peritonitis especially in the lower abdomen. Procedure Description After the patient was brought to the operating room endotracheal anesthesia was given. Abdomen was prepped with ChloraPrep solution and draped in a sterile manner timeout was performed. Then I made a small incision between the xiphoid process and the umbilicus and the fascia was cleaned. Veress needle was inserted and pneumoperitoneum was created up to 15 mmHg. Then I passed a 12 m trocar and 10 mm camera. It immediately became clear that the patient has had perforated appendicitis because of the extensive exudate over the right gutter and free pus in the pelvis and in the right lower quadrant. However I tried to do it laparoscopically by placing 2 others 5 mm trocars 1 left lateral other 1 right lower quadrant in location. Using a harmonic hiral and laparoscopic Anitha I dissected the appendix gradually but ruptured and purulent material including fecal material came out of the appendix. I further attempted dissection resulted in tearing of the appendix which is already ruptured. At this time we decided that we need to open and complete the appendectomy. Therefore trocars were pulled out and the epigastric suture was closed with 0 Ethibond. Then the subcutaneous tissue was closed with 3-0 plain and the skin by 4-0 Monocryl. Other trocar sites in the lower abdomen also was treated with the same way with 4-0 Monocryl. Then I opened the appendix by wound to the right side of the patient and making a McBurney incision. Muscle-splitting incision was carried out all the way the peritoneum was entered. All irrigation fluid was seen after entering the abdominal cavity. The appendix was easily seen below the cecum and it was gangrenous. Large fecalith was removed measuring about 2 to 3 cm. The the appendectomy was carried out in piecemeal by dissecting out the ruptured appendix and removing it little bile. The base of the appendix was reached and it still showed some ischemic changes and gangrenous changes. I could not close this with a staple. Therefore I used 2-0 Vicryl sutures and close the stump clearly. Then I took the adjoining fat the tissue covering the cecum and attached it to the cecum using 3-0 silk sutures to buttress the repair. Then extensive irrigation again was carried out. After confirming the sponge count the wound was closed in layers using 2-0 Vicryl for the peritoneum and the transversalis fascia and 0 Vicryl for the internal oblique and external oblique. Subcutaneous tissue was irrigated but not closed and the skin was closed with gio even though I expected a possible wound infection. After injecting local anesthesia dressing was applied with Adaptic and 4 x 4 gauze and patient tolerated the procedure well and left operating in stable condition. Anesthesia GETA Pathology / specimen Other (Perforated appendicitis in piecemeal) IVF Infused 500 Estimated Blood Loss 100 Condition Stable Disposition PACU Surgeon Ayse Amaya MD Surgical Staff Operation Date: 08/06/25 09:45 Case Staff RIVET HOLE MACHINE OPERATOR: Dorinda Ding RN First Assistant: Rox Ross
--- NOTE | 2025-08-06 11:38 | SUR.PHASEI ---
1138 Patient arrived to recovery in [facility], obtunded, oral airway placed upon arrival, on oxygen 8L via oxy mask-oxygen increased to 15L, will monitor, breathing unlabored, oxygen level 90% increased to 92-95% with increase in oxygen saturation level, the remainder of patient vital signs are within normal limited, dressing intact to abdomen x1 port-gio, adaptic, gauze, medipore tape; x2 ports-dissolvable sutures, gauze, medipore tape, no bleeding noted, report received from Ben GRESHAM and Dorinda OROZCO
--- NOTE | 2025-08-06 12:31 | ESPR_ITS ---
<Statement entered by Josh Vizcaino MD - 08/06/25 12:43> Patient was examined and case was reviewed with team including attending physician. Note reviewed, I agree with most of its contents and agree with the patient's care as documented by Dr. Wen Patient taken to the OR prior to my examination for laparoscopic appendectomy with Dr. Justin, General surgeon. Will see postoperatively. Case discussed with my attending Dr. Adriel Vizcaino MD PGY-2 Disclaimer: Despite multiple revisions, due to the dictation software being used, the document bellow may not be free of grammatical errors including phonetic/typographic errors. However, this does not deter from our commitment to providing health care in the patient's best interest in mind. Documentation for date of: 08/06/25 Subjective Subjective Interval history: Patient not in room at time of evaluation; presumed taken to the OR for appendectomy with General Surgery. Overnight course notable for worsening leukocytosis and persistent abdominal pain. Will reassess patient post-operatively. Exam Vital Signs Temp Pulse Resp BP Pulse Ox O2 Del Method O2 Flow Rate 98.6 F 84 20 141/69 H 90 L Room Air 8 08/06/25 11:38 08/06/25 11:38 08/06/25 11:38 08/06/25 11:38 08/06/25 11:38 08/06/25 07:58 08/06/25 11:38 Narrative Exam Deferred, as patient is in surgery. Will reassess after. Objective Labs 08/07/25 04:59 08/07/25 04:59 Labs: Laboratory Results - last 24 hr 08/05/25 08/05/25 08/06/25 19:45 21:24 05:50 WBC 13.8 H 15.4 H RBC 5.53 H 5.35 H Hgb 15.3 15.0 Hct 46.3 H 45.5 MCV 84 85 MCH 27.7 28.0 MCHC 33.0 33.0 RDW Std Deviation 38.5 39.0 Plt Count 256 221 D Neut % (Auto) 85 H 87 H Lymph % (Auto) 8 L 5 L Allen % (Auto) 5 7 Eos % (Auto) 1 0 Baso % (Auto) 0 0 Neut # (Auto) 11.8 H 13.4 H Lymph # (Auto) 1.2 0.8 L Allen # (Auto) 0.7 1.1 H Eos # (Auto) 0.2 0.0 Baso # (Auto) 0.0 0.0 Immature Gran # (Auto) 0.05 H 0.06 H Absolute Nucleated RBC 0.00 0.00 Immature Gran % 0 0 Nucleated RBC % 0 0 ESR 45 H PT 10.9 INR 1.0 APTT 26.1 Sodium 136 138 Potassium 3.3 L 3.8 D Chloride 96 L 98 Carbon Dioxide 25.8 26.9 Anion Gap 14 13 BUN 17 13 Creatinine 1.0 1.0 Estim Creat Clear Calc 41.9 L 41.6 L eGFR 56 L 56 L BUN/Creatinine Ratio 17 13 Glucose 150 H 181 H Calculated Osmolality 276 280 Lactic Acid 1.7 Calcium 10.9 H 9.8 Corrected Calcium 10.9 H Magnesium 2.0 1.6 Total Bilirubin 0.7 Direct Bilirubin 0.2 AST 28 ALT 23 Alkaline Phosphatase 134 H Troponin I < 0.020 C-Reactive Prot, Quant 1.4 H B-Natriuretic Peptide 22 Total Protein 8.2 Albumin 5.1 H Globulin 3.1 Albumin/Globulin Ratio 1.6 Amylase 57 Lipase 46 Procalcitonin < 0.04 TSH 3.75 Ur Collection Type Clean Catch Urine Color Lt-Yellow Urine Clarity Clear Urine pH 6.0 Ur Specific Drummond 1.017 Urine Protein Negative Urine Glucose (UA) 4+ A Urine Ketones Trace Urine Blood Negative Urine Nitrite Positive Urine Bilirubin Negative Urine Urobilinogen (Auto) Negative Ur Leukocyte Esterase Positive Urine RBC 1 Urine WBC 19 H Ur Squamous Epith Cells < 1 Urine Bacteria 1+ A Ur Culture Indicated? Yes Quality Measures Quality Measures none Advance care planning discussed with:: patient Assessment & Plan Assessment Current Active Medications: Generic Name Dose Route Start Last Admin Trade Name Freq PRN Reason Stop Dose Admin Acetaminophen 650 mg 08/05/25 22:34 Acetaminophen 325 Mg Tablet PO 09/04/25 22:33 Q6H PRN Fever >101.5 Albuterol/Ipratropium 3 ml 08/06/25 08:49 Albuterol/Ipratropium (Duoneb) Rt Lucia 3 Ml Nebu INH 09/05/25 08:48 Q4HRRT PRN SHORTNESS OF BREATH Dextrose 25 ml 08/05/25 22:42 Dextrose 50%-Water Inj 50 Ml Syringe IV 09/04/25 22:41 Q15MIN PRN BG 50-70 responsive npo pt Dextrose 50 ml 08/05/25 22:42 Dextrose 50%-Water Inj 50 Ml Syringe IV 09/04/25 22:41 Q15MIN PRN BG <50 OR BG <70 & pt unresponsive Glucagon 1 mg 08/05/25 22:42 Glucagon Inj 1 Mg Vial IM Q15MIN PRN BG <70, and no IV access Heparin Sodium (Porcine) 5,000 unit 08/06/25 14:00 Heparin Sod Inj 5000 Unit/Ml Vial SC 08/20/25 13:59 Q8HR RANDAL Lactated Ringer's 1,000 mls @ 75 mls/hr 08/05/25 22:45 08/06/25 00:29 Lactated Ringers IV 09/04/25 22:44 75 mls/hr .[id number] RANDAL Administration Ceftriaxone Sodium/Dextrose 1 gm in 50 mls @ 100 mls/hr 08/06/25 09:00 08/06/25 08:03 Rocephin/D5w 1gm Iv Premix IV 08/13/25 08:59 100 mls/hr QDAY RANDAL Administration Metronidazole 500 mg in 100 mls @ 200 mls/hr 08/06/25 06:00 08/06/25 05:20 Flagyl 500 Mg Iv IV 08/13/25 05:59 200 mls/hr Q8HR RANDAL Administration Insulin Degludec 5 unit 08/05/25 22:45 08/06/25 08:03 Insulin Degludec 5 Unit/0.05 Ml (Per 5 Units) SC 09/04/25 22:44 Not Given QDAY RANDAL Insulin Human Lispro 0 unit 08/06/25 07:30 08/06/25 07:28 Insulin Lispro (Admelog) 1 Unit/0.01 Ml Unit SC 09/05/25 07:29 Not Given AC [facility] Protocol Morphine Sulfate 2 mg 08/05/25 22:34 Morphine Sulf Inj 4 Mg/Ml Vial IVP 08/10/25 22:33 Q2H PRN PAIN SCALE 7-10 (Severe Plan 84-year-old female with PMH of hypertension, hyperlipidemia, and type [address]-confirmed acute retrocecal appendicitis, with leukocytosis, UTI, and uncontrolled hypertension, currently in the OR with General Surgery (Dr. Justin) for appendectomy. # Acute Appendicitis CT-confirmed retrocecal appendicitis without abscess; worsening leukocytosis. Plan: * Patient taken to OR today with General Surgery (Dr. Justin) * Continue ceftriaxone 1 g daily and metronidazole * NPO * Monitor post-op labs and vitals * Follow up operative and surgery consult notes # Urinary Tract Infection UA positive for nitrites, leukocyte esterase, pyuria. Plan: * Continue ceftriaxone * Follow urine culture results * Monitor for signs of sepsis # Hypertension Severely elevated BP this morning. 181/75 Plan: * Nifedipine 30 mg PO x1 ordered unsure if it was administered * Resume/adjust home antihypertensives post-op as tolerated * Monitor BP closely # Type 2 Diabetes Mellitus Hyperglycemia during acute illness. Plan: * Continue insulin sliding scale * Accuchecks AC/HS * Adjust regimen postoperatively # Hypomagnesemia Magnesium mildly low. Mg 1.6 Plan: * Replete magnesium as needed * Recheck level tomorrow # Left Lower Lobe Pneumonia (early) Incidental finding on CXR. Plan: * Covered with current antibiotics * Monitor respiratory status * Incentive spirometry post-op # Incidental Pulmonary Nodule (4 mm, LLL) Incidental CT finding. Plan: * Outpatient follow-up imaging per Fleischner guidelines * Will document in discharge summary Health Maintenance: Code Status: Full code Diet: NPO (perioperative) DVT Prophylaxis: Per surgery post-op Disposition: Continue inpatient care, reassess after surgery ----- Plan discussed with attending physician Dr. Morel and senior resident Dr. Andi Wen MD PGY-1 Internal Medicine . Attending Provider Attestation/Addendum I have seen and examined the patient. I was physically present for the hoff portions of the services provided including history, physical exam, diagnosis, treatment plans and orders. I agree with assessment and plan of care as documented by residents. Even though this this note was carefully revised there may still be minor errors in pack puller due to voice recognition software. Jonathan Morel MD
--- NOTE | 2025-08-06 13:46 | SUR.PHASEI ---
1346 patient transported via gurney to room 371 without incident, patient able to transfer herself from [place] to bed without incident, Radha JENSEN promptly in patient room, patient voided during transfer, brief placed on patient, patient resting comfortably in bed with staff at bedside and her family member present when this health science writer left patients room
[2025-08-06] MEDS: HEPARIN SOD INJ 5000 UNIT/ML VIAL SC ×2 (14:05→22:05)
[2025-08-06] MEDS: MORPHINE SULF INJ 4 MG/ML VIAL 2 MG IVP ×2 (17:57→21:48)
[2025-08-07] VITALS (9 sets, daily range): BP systolic 125–184; BP diastolic 66–102; PULSE 82–98; RESP 16–19; TEMP 36.1–36.6; O2SAT 92–94
[2025-08-07] MEDS: MORPHINE SULF INJ 4 MG/ML VIAL 2 MG IVP ×2 (03:22→09:29)
[2025-08-07] MEDS: metroNIDAZOLE/NS 500 MG IVPB 500 MG/100 ML BAG 200 MG IV ×3 (05:41→21:03)
[2025-08-07] MEDS: HEPARIN SOD INJ 5000 UNIT/ML VIAL SC ×3 (05:41→21:01)
[2025-08-07 05:52] LABS: Basophils # (Auto) 0.0 Thou/mm3 (0.0-0.2); Basophils % (Auto) 0 % (0-2.5); Eosinophils # (Auto) 0.0 Thou/mm3 (0.0-0.5); Eosinophils % (Auto) 0 % (0-10); Hematocrit 41.8 % (36.0-46.0); Hemoglobin 13.7 g/dL (12.0-16.0); Immature Granulocytes Auto 0.02 Thou/mm3 (0.00-0.00); Lymphocytes # (Auto) 0.9 Thou/mm3 (1.0-4.8); Lymphocytes % (Auto) 10 % (10-50); Mean Corpuscular HGB Conc 32.8 g/dl (31.0-37.0); Mean Corpuscular Hemoglobin 28.0 pg (25.0-35.0); Mean Corpuscular Volume 86 fL (80-100); Monocytes # (Auto) 0.6 Thou/mm3 (0.0-0.8); Monocytes % (Auto) 6 % (0-12); Neutrophils # (Auto) 8.0 Thou/mm3 (1.8-7.7); Neutrophils % (Auto) 84 % (37-80); Nucleated Red Blood Cell # 0.00 Thou/mm3 (0.00-0.00); Nucleated Red Blood Cell % 0 /100 WBC (0); Platelet Count 168 Thou/mm3 (140-440); RDW Standard Deviation 39.8 fL (36.4-46.3); Red Blood Count 4.89 Miln/mm3 (4.00-5.20); White Blood Count 9.6 Thou/mm3 (3.6-11.0)
[2025-08-07 06:08] LABS: Anion Gap 14 (7-16); BUN/Creatinine Ratio 14 Ratio (12-20); Blood Urea Nitrogen 14 mg/dL (9-23); Calcium 9.0 mg/dL (8.3-10.6); Carbon Dioxide 25.3 mMol/L (20.0-31.0); Chloride 102 mMol/L (98-107); Creatinine (Component) 1.0 mg/dL (0.6-1.3); Estimated Creatinine Clearance 41.6 mL/min (>60); Glucose 122 mg/dL (74-106); Osmolality,Calculated 282 (275-295); Potassium 3.7 mMol/L (3.4-5.1); Sodium 141 mMol/L (136-145); eGFR 56 See Note
[2025-08-07] MEDS: cefTRIAXone/D5w 1gm IV premix 1 GM/50 ML BAG IV (09:24)
--- NOTE | 2025-08-07 10:00 | ESPR_ITS ---
Documentation for date of: 08/07/25 Subjective Subjective Interval history: Seen and examined today. Patient reports significant abdominal pain with movement and does not want to take morphine. Reports bloating and passing only a small amount of gas. Tolerating clear liquid diet without nausea or vomiting. Has not ambulated yet due to pain. Denies shortness of breath, cough, or chest pain. Exam Vital Signs Temp Pulse Resp BP Pulse Ox O2 Del Method O2 Flow Rate 97.2 F 82 16 129/70 94 L Nasal Cannula 2 08/07/25 08:00 08/07/25 09:50 08/07/25 09:50 08/07/25 08:00 08/07/25 09:50 08/07/25 08:00 08/07/25 09:50 Narrative Exam General: Awake, alert, uncomfortable with movement Cardiovascular: Regular rate and rhythm Respiratory: Clear to auscultation bilaterally, no respiratory distress Abdomen: Soft, distended, diffusely tender, worse near surgical site; bowel sounds present; surgical dressing clean, dry, intact Extremities: No edema Neurologic: Alert and oriented ?3 Objective Labs 08/07/25 04:59 08/07/25 04:59 Labs: Laboratory Results - last 24 hr 08/07/25 04:59 WBC 9.6 D RBC 4.89 Hgb 13.7 Hct 41.8 MCV 86 MCH 28.0 MCHC 32.8 RDW Std Deviation 39.8 Plt Count 168 D Neut % (Auto) 84 H Lymph % (Auto) 10 [place] % (Auto) 6 Eos % (Auto) 0 Baso % (Auto) 0 Neut # (Auto) 8.0 H Lymph # (Auto) 0.9 L [place] # (Auto) 0.6 Eos # (Auto) 0.0 Baso # (Auto) 0.0 Immature Gran # (Auto) 0.02 H Absolute Nucleated RBC 0.00 Immature Gran % 0 Nucleated RBC % 0 Sodium 141 Potassium 3.7 Chloride 102 Carbon Dioxide 25.3 Anion Gap 14 BUN 14 Creatinine 1.0 Estim Creat Clear Calc 41.6 L eGFR 56 L BUN/Creatinine Ratio 14 Glucose 122 H D Calculated Osmolality 282 Calcium 9.0 Quality Measures Quality Measures VTE prophylaxis Advance care planning discussed with:: patient Assessment & Plan Assessment Current Active Medications: Generic Name Dose Route Start Last Admin Trade Name Freq PRN Reason Stop Dose Admin Acetaminophen 650 mg 08/05/25 22:34 Acetaminophen 325 Mg Tablet PO 09/04/25 22:33 Q6H PRN Fever >101.5 Albuterol/Ipratropium 3 ml 08/06/25 08:49 Albuterol/Ipratropium (Duoneb) Rt Lucia 3 Ml Nebu INH 09/05/25 08:48 Q4HRRT PRN SHORTNESS OF BREATH Dextrose 25 ml 08/05/25 22:42 Dextrose 50%-Water Inj 50 Ml Syringe IV 09/04/25 22:41 Q15MIN PRN BG 50-70 responsive npo pt Dextrose 50 ml 08/05/25 22:42 Dextrose 50%-Water Inj 50 Ml Syringe IV 09/04/25 22:41 Q15MIN PRN BG <50 OR BG <70 & pt unresponsive Glucagon 1 mg 08/05/25 22:42 Glucagon Inj 1 Mg Vial IM Q15MIN PRN BG <70, and no IV access Heparin Sodium (Porcine) 5,000 unit 08/06/25 14:00 08/07/25 05:41 Heparin Sod Inj 5000 Unit/Ml Vial SC 08/20/25 13:59 5,000 unit Q8HR RANDAL Administration Lactated Ringer's 1,000 mls @ 75 mls/hr 08/05/25 22:45 08/06/25 21:59 Lactated Ringers IV 09/04/25 22:44 75 mls/hr .[id number] RANDAL Administration Ceftriaxone Sodium/Dextrose 1 gm in 50 mls @ 100 mls/hr 08/06/25 09:00 08/07/25 09:24 Rocephin/D5w 1gm Iv Premix IV 08/13/25 08:59 100 mls/hr QDAY RANDAL Administration Metronidazole 500 mg in 100 mls @ 200 mls/hr 08/06/25 06:00 08/07/25 05:41 Flagyl 500 Mg Iv IV 08/13/25 05:59 200 mls/hr Q8HR RANDAL Administration Insulin Degludec 5 unit 08/05/25 22:45 08/07/25 09:20 Insulin Degludec 5 Unit/0.05 Ml (Per 5 Units) SC 09/04/25 22:44 Not Given QDAY RANDAL Insulin Human Lispro 0 unit 08/06/25 07:30 08/07/25 07:59 Insulin Lispro (Admelog) 1 Unit/0.01 Ml Unit SC 09/05/25 07:29 Not Given AC RANDAL Protocol Morphine Sulfate 2 mg 08/05/25 22:34 08/07/25 09:29 Morphine Sulf Inj 4 Mg/Ml Vial IVP 08/10/25 22:33 2 mg Q2H PRN Administration PAIN SCALE 7-10 (Severe Plan 84-year-old female with PMH of hypertension, hyperlipidemia, and type [address]-confirmed acute retrocecal appendicitis, with leukocytosis, UTI, and uncontrolled hypertension, currently in the OR with General Surgery (Dr. Justin) for appendectomy. # Acute perforated appendicitis with purulent peritonitis # POD#1 s/p open appendectomy CT-confirmed retrocecal appendicitis without abscess; worsening leukocytosis. Patient had ruptured, gangrenous appendicitis with free purulent peritonitis, requiring conversion from laparoscopic to open appendectomy. WBC has normalized. Surgery following closely. Started on clear liquid diet, advance as tolerated. Plan: * Continue IV antibiotics per surgery (ceftriaxone ? metronidazole) * Monitor for postoperative complications (abscess, ileus, wound infection) * Daily CBC and BMP * Await general surgery recommendations regarding diet advancement and discharge planning # Postoperative pain, limiting mobility # Postoperative ileus/bloating Pain significant with movement; patient declined morphine. Passing minimal flatus, abdomen distended but tolerating liquids. Plan: * Continue acetaminophen scheduled * Start Hugo 5/325 mg q6h PRN * Avoid IV opioids if patient prefers * Simethicone PRN * Encourage ambulation as tolerated * Monitor bowel function and abdominal exam * Advance diet per surgery # Urinary Tract Infection UA positive for nitrites, leukocyte esterase, pyuria. Plan: * Continue ceftriaxone * Follow urine culture results * Monitor for signs of sepsis # Hypertension Severely elevated BP on admission 181/75. Stable this morning pod 1 at 129/70 Plan: * Resume/adjust home antihypertensives post-op as tolerated * Monitor BP closely # Type 2 Diabetes Mellitus Hyperglycemia during acute illness. Plan: * Continue insulin sliding scale * Accuchecks AC/HS * Adjust regimen postoperatively # Hypomagnesemia Magnesium mildly low. Plan: * Replete magnesium as needed * Recheck level tomorrow # Left Lower Lobe Pneumonia (early) Incidental finding on CXR. Plan: * Covered with current antibiotics * Monitor respiratory status * Incentive spirometry post-op # Incidental Pulmonary Nodule (4 mm, LLL) Incidental CT finding. Plan: * Outpatient follow-up imaging per Fleischner guidelines * Will document in discharge summary Health Maintenance: Code Status: Full code Diet: NPO (perioperative) DVT Prophylaxis: Per surgery post-op Disposition: Continue inpatient care, reassess after surgery ----- Plan discussed with attending physician Dr. Adriel Wen MD PGY-1 Internal Medicine . Attending Provider Attestation/Addendum I have seen and examined the patient. I was physically present for the hoff portions of the services provided including history, physical exam, diagnosis, treatment plans and orders. I agree with assessment and plan of care as documented by residents. Patient seen and examined at bedside this morning. No acute overnight events. Complains of abdominal pain and distention. She has been passing gas but in small amount. Has not had bowel movement in last few days. WBC count has been improving. Saturating well on nasal cannula. Underwent open appendectomy yesterday, was found to have perforated appendicitis with purulent peritonitis. We will continue with IV Rocephin and metronidazole. Discussed with general surgery, started patient on clear liquid diet, appreciate recommendations. Culture results have been negative for 24 hours. Started patient on incentive spirometry, we will encourage ambulation. We will also adjust her analgesic regimen. Physical therapy ordered. Even though this this note was carefully revised there may still be minor errors in hedis review nurse due to voice recognition software. Jonathan Morel MD
--- NOTE | 2025-08-07 10:49 | PD.SURPROG ---
Documentation for date of: 08/07/25 Subjective Subjective Brief History: History of present was revealed the patient was in normal condition until yesterday afternoon when she started developing severe pain in the right side of the abdomen. Patient denies any vomiting and she has had no such pains in the past. Patient is very active despite her age of 84 years and lives alone. She is and in the past she was working as a teacher until 3 years ago. She has history of arthritis and diabetes and hypertension past surgery consist of bilateral breast reduction 30 years ago and hysterectomy Narrative: Patient is still complaining of considerable abdominal pain. Exam Vital Signs Temp Pulse Resp BP Pulse Ox O2 Del Method O2 Flow Rate 97.2 F 82 16 129/70 94 L Nasal Cannula 2 08/07/25 08:00 08/07/25 09:50 08/07/25 09:50 08/07/25 08:00 08/07/25 09:50 08/07/25 08:00 08/07/25 09:50 Her vital signs are normal Routine Abdominal Exam Comments: Abdominal examination shows no active bowel sounds. She states she is passing flatus Results Results: Laboratory Laboratory Narrative: Laboratory results are within normal limits Assessment & Plan Assessment Additional comments: Impression: Stable following open appendectomy Plan Plan: Patient will have considerable amount of ileus and therefore will not advance diet even if she desires to eat. We will go slow and feeding her. PROCEDURES: Procedures Attempted laparoscopic appendectomy Opened up and
[2025-08-07] MEDS: SIMETHICONE 80 MG CHEW PO (12:35)
[2025-08-07] MEDS: HYDROcodone/APAP 5/325 TABLET 1 TAB PO ×2 (12:35→21:25)
[2025-08-07] MEDS: RINGERS LACTATED 1000 ML 1,000 ML 75 ML IV (12:37)
--- NOTE | 2025-08-07 15:04 | PC.SS ---
Inez Gray is a 84-year-old female admitted to Med Surg for Acute Appendicitis. SS conducted bedside contact with the patient to complete initial assessment and to discuss discharge planning. Role and reason explained. Patient confirmed demographic information. Patient identifies Lisssin Connor Taveras [phone] as her surrogate decision maker. Pt states she is able to complete all ADL?s independently. Uses a cane at times. Pts PCP is Lupe Russell (last visit was few weeks ago). Pharmacy of choice is [facility]. Discharge options discussed and the pt wishes to return home.? Family will provide transportation upon DC. No further intervention required at this time, psych social worker would be available to address any further concerns. DC Plan: Home Contact: Letitia Ryan PCP: Pk
--- NOTE | 2025-08-07 16:08 | PC.SS ---
Rounding: Pt POD #1 open appendectomy
[2025-08-08] VITALS (9 sets, daily range): BP systolic 136–175; BP diastolic 85–102; PULSE 76–93; RESP 16–19; TEMP 36.1–36.4; O2SAT 91–95
[2025-08-08] MEDS: RINGERS LACTATED 1000 ML 1,000 ML 75 ML IV ×2 (04:59→20:05)
[2025-08-08] MEDS: HYDROcodone/APAP 5/325 TABLET 1 TAB PO (05:03)
[2025-08-08] MEDS: metroNIDAZOLE/NS 500 MG IVPB 500 MG/100 ML BAG 200 MG IV ×3 (05:08→21:07)
[2025-08-08] MEDS: HEPARIN SOD INJ 5000 UNIT/ML VIAL SC ×3 (05:10→21:07)
[2025-08-08] MEDS: LOSARTAN POTASSIUM 25 MG TABLET 100 MG PO (05:43)
[2025-08-08 06:39] LABS: Basophils # (Auto) 0.0 Thou/mm3 (0.0-0.2); Basophils % (Auto) 0 % (0-2.5); Eosinophils # (Auto) 0.1 Thou/mm3 (0.0-0.5); Eosinophils % (Auto) 1 % (0-10); Hematocrit 43.5 % (36.0-46.0); Hemoglobin 14.0 g/dL (12.0-16.0); Immature Granulocytes Auto 0.05 Thou/mm3 (0.00-0.00); Lymphocytes # (Auto) 0.8 Thou/mm3 (1.0-4.8); Lymphocytes % (Auto) 8 % (10-50); Mean Corpuscular HGB Conc 32.2 g/dl (31.0-37.0); Mean Corpuscular Hemoglobin 28.2 pg (25.0-35.0); Mean Corpuscular Volume 88 fL (80-100); Monocytes # (Auto) 0.5 Thou/mm3 (0.0-0.8); Monocytes % (Auto) 5 % (0-12); Neutrophils # (Auto) 8.1 Thou/mm3 (1.8-7.7); Neutrophils % (Auto) 85 % (37-80); Nucleated Red Blood Cell # 0.00 Thou/mm3 (0.00-0.00); Nucleated Red Blood Cell % 0 /100 WBC (0); Platelet Count 209 Thou/mm3 (140-440); RDW Standard Deviation 40.1 fL (36.4-46.3); Red Blood Count 4.97 Miln/mm3 (4.00-5.20); White Blood Count 9.6 Thou/mm3 (3.6-11.0)
[2025-08-08 07:22] LABS: Anion Gap 12 (7-16); BUN/Creatinine Ratio 19 Ratio (12-20); Blood Urea Nitrogen 13 mg/dL (9-23); Calcium 9.2 mg/dL (8.3-10.6); Carbon Dioxide 27.1 mMol/L (20.0-31.0); Chloride 98 mMol/L (98-107); Creatinine (Component) 0.7 mg/dL (0.6-1.3); Estimated Creatinine Clearance 59.5 mL/min (>60); Glucose 88 mg/dL (74-106); Osmolality,Calculated 272 (275-295); Potassium 4.0 mMol/L (3.4-5.1); Sodium 137 mMol/L (136-145); eGFR > 60 See Note
[2025-08-08] MEDS: cefTRIAXone/D5w 1gm IV premix 1 GM/50 ML BAG IV (08:54)
--- NOTE | 2025-08-08 10:14 | ESPR_ITS ---
<Statement entered by Tracey Tena MD - 08/18/25 08:25> I reviewed above note and agree with findings and plans. I have also personally examined the patient with medicine team and went over assessment and plan with medical team including collector of internal revenue and resident physician. <Statement entered by Josh Vizcaino MD - 08/08/25 18:55> Patient was examined and case was reviewed with team including attending physician. Note reviewed, I agree with most of its contents and agree with the patient's care as documented by Dr. Wen Patient seen today at the bedside found awake, alert, orientedx3. No overnight events reported. Vital signs and labs reviewed. Patient is POD#2 currently pain is adequately controlled. Plan is to continue advancing diet and possibly discharge in next 24-48 hours. Case discussed with my attending Dr. Mallika Vizcaino MD PGY-2 Documentation for date of: 08/08/25 Subjective Subjective Interval history: Patient seen at bedside this morning. Reports significant improvement in abdominal pain compared to yesterday. Pain now manageable and patient is agreeable to getting out of bed and ambulating today. She reports passing flatus, though no bowel movement yet. Denies nausea, vomiting, chest pain, shortness of breath, or cough. Tolerating clear liquid diet without issues. Exam Vital Signs Temp Pulse Resp BP Pulse Ox O2 Del Method O2 Flow Rate 97.4 F 81 17 162/89 H 95 Nasal Cannula 3 08/08/25 08:00 08/08/25 08:00 08/08/25 08:00 08/08/25 08:00 08/08/25 08:00 08/08/25 08:00 08/08/25 08:00 Narrative Exam General: Awake, alert, appears more comfortable than prior days Cardiac: Regular rate and rhythm Respiratory: Clear to auscultation bilaterally, no distress Abdomen: Soft, postoperative tenderness appropriate, mild distention, passing gas, no rebound or guarding Extremities: No edema Neuro: Alert and oriented ?3 Objective Labs 08/08/25 05:15 08/08/25 05:15 Labs: Laboratory Results - last 24 hr 08/08/25 05:15 WBC 9.6 RBC 4.97 Hgb 14.0 Hct 43.5 MCV 88 MCH 28.2 MCHC 32.2 RDW Std Deviation 40.1 Plt Count 209 D Neut % (Auto) 85 H Lymph % (Auto) 8 L [place] % (Auto) 5 Eos % (Auto) 1 Baso % (Auto) 0 Neut # (Auto) 8.1 H Lymph # (Auto) 0.8 L [place] # (Auto) 0.5 Eos # (Auto) 0.1 Baso # (Auto) 0.0 Immature Gran # (Auto) 0.05 H Absolute Nucleated RBC 0.00 Immature Gran % 1 H Nucleated RBC % 0 Sodium 137 Potassium 4.0 Chloride 98 Carbon Dioxide 27.1 Anion Gap 12 BUN 13 Creatinine 0.7 Estim Creat Clear Calc 59.5 L eGFR > 60 BUN/Creatinine Ratio 19 Glucose 88 Calculated Osmolality 272 L Calcium 9.2 Quality Measures Quality Measures VTE prophylaxis Advance care planning discussed with:: patient Assessment & Plan Assessment Current Active Medications: Generic Name Dose Route Start Last Admin Trade Name Freq PRN Reason Stop Dose Admin Acetaminophen 650 mg 08/05/25 22:34 Acetaminophen 325 Mg Tablet PO 09/04/25 22:33 Q6H PRN Fever >101.5 Hydrocodone Bitart/Acetaminophen 1 tab 08/07/25 11:29 08/08/25 05:03 Hydrocodone/Apap 5/325 Tablet PO 08/12/25 11:28 1 tab Q6HR PRN Administration pain 4-6 Albuterol/Ipratropium 3 ml 08/06/25 08:49 Albuterol/Ipratropium (Duoneb) Rt Lucia 3 Ml Nebu INH 09/05/25 08:48 Q4HRRT PRN SHORTNESS OF BREATH Dextrose 25 ml 08/05/25 22:42 Dextrose 50%-Water Inj 50 Ml Syringe IV 09/04/25 22:41 Q15MIN PRN BG 50-70 responsive npo pt Dextrose 50 ml 08/05/25 22:42 Dextrose 50%-Water Inj 50 Ml Syringe IV 09/04/25 22:41 Q15MIN PRN BG <50 OR BG <70 & pt unresponsive Glucagon 1 mg 08/05/25 22:42 Glucagon Inj 1 Mg Vial IM Q15MIN PRN BG <70, and no IV access Heparin Sodium (Porcine) 5,000 unit 08/06/25 14:00 08/08/25 05:10 Heparin Sod Inj 5000 Unit/Ml Vial SC 08/20/25 13:59 5,000 unit Q8HR RANDAL Administration Lactated Ringer's 1,000 mls @ 75 mls/hr 08/05/25 22:45 08/08/25 04:59 Lactated Ringers IV 09/04/25 22:44 75 mls/hr .[id number] RANDAL Administration Ceftriaxone Sodium/Dextrose 1 gm in 50 mls @ 100 mls/hr 08/06/25 09:00 08/08/25 08:54 Rocephin/D5w 1gm Iv Premix IV 08/13/25 08:59 100 mls/hr QDAY RANDAL Administration Metronidazole 500 mg in 100 mls @ 200 mls/hr 08/06/25 06:00 08/08/25 05:08 Flagyl 500 Mg Iv IV 08/13/25 05:59 200 mls/hr Q8HR RANDAL Administration Insulin Degludec 5 unit 08/05/25 22:45 08/08/25 08:54 Insulin Degludec 5 Unit/0.05 Ml (Per 5 Units) SC 09/04/25 22:44 Not Given QDAY RANDAL Insulin Human Lispro 0 unit 08/06/25 07:30 08/08/25 07:26 Insulin Lispro (Admelog) 1 Unit/0.01 Ml Unit SC 09/05/25 07:29 Not Given AC [facility] Protocol Morphine Sulfate 2 mg 08/05/25 22:34 08/07/25 09:29 Morphine Sulf Inj 4 Mg/Ml Vial IVP 08/10/25 22:33 2 mg Q2H PRN Administration PAIN SCALE 7-10 (Severe Simethicone 80 mg 08/08/25 08:15 Simethicone 80 Mg Chew PO 09/07/25 08:14 TID RANDAL Plan 84-year-old female with PMH of HTN, HLD, and type 2 DM, admitted with acute perforated appendicitis complicated by purulent peritonitis, now POD#2 s/p open appendectomy, with improving pain and bowel function. # Acute perforated appendicitis with purulent peritonitis # POD#2 s/p open appendectomy CT-confirmed retrocecal appendicitis without abscess; worsening leukocytosis. Patient had ruptured, gangrenous appendicitis with free purulent peritonitis, requiring conversion from laparoscopic to open appendectomy. WBC has normalized. Surgery following closely. Started on clear liquid diet, advance as tolerated. Plan: * Continue IV antibiotics per surgery (ceftriaxone ? metronidazole) * Monitor for postoperative complications (abscess, ileus, wound infection) * Daily CBC and BMP * Await general surgery recommendations regarding diet advancement and discharge planning # Postoperative pain, limiting mobility # Postoperative ileus/bloating Pain significant with movement; patient declined morphine. Passing minimal flatus, abdomen distended but tolerating liquids. 08/08: Passing flatus, no BM yet. Plan: * Continue acetaminophen scheduled * Start [place] 5/325 mg q6h PRN * Avoid IV opioids if patient prefers * Simethicone PRN * Encourage ambulation as tolerated * Monitor bowel function and abdominal exam * Advance diet per surgery # Urinary Tract Infection UA positive for nitrites, leukocyte esterase, pyuria. Plan: * Continue ceftriaxone * Follow urine culture results * Monitor for signs of sepsis # Hypertension Severely elevated BP on admission 181/75. Worsening this morning pod 2 at 162/89 Plan: * Resume/adjust home antihypertensives post-op as tolerated * Night team gave one time order of losartan 100 mg * Monitor BP closely # Type 2 Diabetes Mellitus Hyperglycemia during acute illness. Plan: * Continue insulin sliding scale * Accuchecks AC/HS * Adjust regimen postoperatively # Hypomagnesemia, resolved Plan: * Replete magnesium as needed * Recheck level tomorrow # Left Lower Lobe Pneumonia (early) Incidental finding on CXR. Plan: * Covered with current antibiotics * Monitor respiratory status * Incentive spirometry post-op # Incidental Pulmonary Nodule (4 mm, LLL) Incidental CT finding. Plan: * Outpatient follow-up imaging per Fleischner guidelines * Will document in discharge summary Health Maintenance: Code Status: Full code Diet: Clear liquid diet DVT Prophylaxis: Per surgery post-op Disposition: Continue inpatient care, reassess after surgery ----- Plan discussed with attending physician Dr. Tena and senior resident Dr. Andi Wen MD PGY-1 Internal Medicine .
--- NOTE | 2025-08-08 13:39 | PC.SS ---
SS was in formed by PT Sarah pt will need SNF, and pt is agreeable. SS submitted SNF referral pending responses.
--- NOTE | 2025-08-08 13:43 | PC.SS ---
CHRISTIAN LVL completed and downloaded
[2025-08-08] MEDS: SIMETHICONE 80 MG CHEW PO ×2 (14:32→21:07)
--- NOTE | 2025-08-08 15:17 | PC.SS ---
Rounding: increase diet, sx reccs
--- NOTE | 2025-08-08 16:58 | PD.SURPROG ---
Documentation for date of: 08/08/25 Subjective Subjective Brief History: History of present was revealed the patient was in normal condition until yesterday afternoon when she started developing severe pain in the right side of the abdomen. Patient denies any vomiting and she has had no such pains in the past. Patient is very active despite her age of 84 years and lives alone. She is and in the past she was working as a teacher until 3 years ago. She has history of arthritis and diabetes and hypertension past surgery consist of bilateral breast reduction 30 years ago and hysterectomy Narrative: Patient is passing flatus. She is still complaining of some pain but not as bad Exam Vital Signs Temp Pulse Resp BP Pulse Ox O2 Del Method O2 Flow Rate 97.4 F 76 18 169/91 H 94 L Nasal Cannula 3 08/08/25 12:00 08/08/25 13:01 08/08/25 13:01 08/08/25 12:00 08/08/25 13:01 08/08/25 12:00 08/08/25 13:01 Vital signs are normal Routine Abdominal Exam Comments: Abdominal examination shows clean incisions with no evidence of infection Results Results: Laboratory Laboratory Narrative: Laboratories these are within normal limits Assessment & Plan Assessment Additional comments: Plan: Slow but steady recovery following open appendectomy Plan Plan: We shall continue IV antibiotics Start her on full liquids PROCEDURES: Procedures Attempted laparoscopic appendectomy Opened up and
[2025-08-09] VITALS (13 sets, daily range): BP systolic 150–202; BP diastolic 89–115; PULSE 67–93; RESP 16–18; TEMP 36.1–36.4; O2SAT 91–98; BMI 28.6
[2025-08-09] MEDS: metroNIDAZOLE/NS 500 MG IVPB 500 MG/100 ML BAG 200 MG IV ×3 (05:33→22:08)
[2025-08-09] MEDS: HEPARIN SOD INJ 5000 UNIT/ML VIAL SC ×3 (05:33→22:08)
[2025-08-09] MEDS: SIMETHICONE 80 MG CHEW PO ×3 (05:33→22:08)
--- NOTE | 2025-08-09 08:18 | PD.SURPROG ---
Documentation for date of: 08/09/25 Subjective Subjective Brief History: History of present was revealed the patient was in normal condition until yesterday afternoon when she started developing severe pain in the right side of the abdomen. Patient denies any vomiting and she has had no such pains in the past. Patient is very active despite her age of 84 years and lives alone. She is and in the past she was working as a teacher until 3 years ago. She has history of arthritis and diabetes and hypertension past surgery consist of bilateral breast reduction 30 years ago and hysterectomy Narrative: Patient is tolerating full liquid and is passing flatus. She is not sure whether she had a bowel movement. Exam Vital Signs Temp Pulse Resp BP Pulse Ox O2 Del Method O2 Flow Rate 97.4 F 88 16 150/96 H 94 L Room Air 3 08/09/25 04:00 08/09/25 04:00 08/09/25 04:00 08/09/25 04:00 08/09/25 04:00 08/09/25 04:00 08/08/25 16:00 Vital signs are normal Routine Abdominal Exam Comments: Abdominal examination showed bowel sounds are active Assessment & Plan Assessment Additional comments: Patient: Slow recovery following open appendectomy Plan Plan: We shall discharge the patient to custodial facility anytime if she is tolerating diet. We shall advance her diet today DC IV PROCEDURES: Procedures Attempted laparoscopic appendectomy Opened up and
[2025-08-09] MEDS: cefTRIAXone/D5w 1gm IV premix 1 GM/50 ML BAG IV (09:29)
[2025-08-09] MEDS: DOCUSATE SOD 100 MG CAPSULE PO (09:29)
--- NOTE | 2025-08-09 10:43 | ESPR_ITS ---
<Statement entered by Tracey Tena MD - 08/18/25 08:26> I reviewed above note and agree with findings and plans. I have also personally examined the patient with medicine team and went over assessment and plan with medical team including nutrition internship and resident physician. Documentation for date of: 08/09/25 Subjective Subjective Interval history: The patient reports feeling better this morning. She has tolerated the clear liquid diet and is advancing to a carbohydrate- consistent diet as planned by Dr. Amaya. She reports passing one small bowel movement and has started on Colace. However, she still feels hesitant to get up from bed, stating that the clear liquid diet has not been very satisfying. Physical therapy will reassess her mobilization today. Pending SNF placement, most likely DC tomorrow. Exam Vital Signs Temp Pulse Resp BP Pulse Ox O2 Del Method O2 Flow Rate 97.3 F 81 16 163/93 H 91 L Room Air 3 08/09/25 08:00 08/09/25 09:29 08/09/25 08:00 08/09/25 09:29 08/09/25 08:00 08/09/25 08:00 08/08/25 16:00 Narrative Exam General: Awake, alert, appears more comfortable than prior days Cardiac: Regular rate and rhythm Respiratory: Clear to auscultation bilaterally, no distress Abdomen: Soft, postoperative tenderness appropriate, mild distention, passing gas and small BM, no rebound or guarding Extremities: No edema Neuro: Alert and oriented ?3 Objective Labs 08/08/25 05:15 08/08/25 05:15 Quality Measures Quality Measures VTE prophylaxis Advance care planning discussed with:: patient Assessment & Plan Assessment Current Active Medications: Generic Name Dose Route Start Last Admin Trade Name Freq PRN Reason Stop Dose Admin Acetaminophen 650 mg 08/05/25 22:34 Acetaminophen 325 Mg Tablet PO 09/04/25 22:33 Q6H PRN Fever >101.5 Hydrocodone Bitart/Acetaminophen 1 tab 08/07/25 11:29 08/08/25 05:03 Hydrocodone/Apap 5/325 Tablet PO 08/12/25 11:28 1 tab Q6HR PRN Administration pain 4-6 Albuterol/Ipratropium 3 ml 08/06/25 08:49 Albuterol/Ipratropium (Duoneb) Rt [place] 3 Ml Nebu INH 09/05/25 08:48 Q4HRRT PRN SHORTNESS OF BREATH Dextrose 25 ml 08/05/25 22:42 Dextrose 50%-Water Inj 50 Ml Syringe IV 09/04/25 22:41 Q15MIN PRN BG 50-70 responsive npo pt Dextrose 50 ml 08/05/25 22:42 Dextrose 50%-Water Inj 50 Ml Syringe IV 09/04/25 22:41 Q15MIN PRN BG <50 OR BG <70 & pt unresponsive Docusate Sodium 100 mg 08/09/25 09:00 08/09/25 09:29 Docusate Sod 100 Mg Capsule PO 09/08/25 08:59 100 mg QDAY RANDAL Administration Protocol Glucagon 1 mg 08/05/25 22:42 Glucagon Inj 1 Mg Vial IM Q15MIN PRN BG <70, and no IV access Heparin Sodium (Porcine) 5,000 unit 08/06/25 14:00 08/09/25 05:33 Heparin Sod Inj 5000 Unit/Ml Vial SC 08/20/25 13:59 5,000 unit Q8HR RANDAL Administration Hydrochlorothiazide 25 mg 08/09/25 09:00 08/09/25 09:29 Hydrochlorothiazide 12.5 Mg Capsule PO 09/08/25 08:59 25 mg QDAY RANDAL Administration Lactated Ringer's 1,000 mls @ 75 mls/hr 08/05/25 22:45 08/08/25 20:05 Lactated Ringers IV 09/04/25 22:44 75 mls/hr .[id number] RANDAL Administration Ceftriaxone Sodium/Dextrose 1 gm in 50 mls @ 100 mls/hr 08/06/25 09:00 08/09/25 09:29 Rocephin/D5w 1gm Iv Premix IV 08/13/25 08:59 100 mls/hr QDAY RANDAL Administration Metronidazole 500 mg in 100 mls @ 200 mls/hr 08/06/25 06:00 08/09/25 05:33 Flagyl 500 Mg Iv IV 08/13/25 05:59 200 mls/hr Q8HR RANDAL Administration Insulin Degludec 5 unit 08/05/25 22:45 08/09/25 09:30 Insulin Degludec 5 Unit/0.05 Ml (Per 5 Units) SC 09/04/25 22:44 Not Given QDAY RANDAL Insulin Human Lispro 0 unit 08/06/25 07:30 08/09/25 07:38 Insulin Lispro (Admelog) 1 Unit/0.01 Ml Unit SC 09/05/25 07:29 Not Given [facility] Protocol Morphine Sulfate 2 mg 08/05/25 22:34 08/07/25 09:29 Morphine Sulf Inj 4 Mg/Ml Vial IVP 08/10/25 22:33 2 mg Q2H PRN Administration PAIN SCALE 7-10 (Severe Simethicone 80 mg 08/08/25 08:15 08/09/25 05:33 Simethicone 80 Mg Chew PO 09/07/25 08:14 80 mg TID [facility] Administration Plan 84-year-old female with PMH of HTN, HLD, and type 2 DM, admitted with acute perforated appendicitis complicated by purulent peritonitis, now POD#3 s/p open appendectomy, with improving pain and bowel function. # Acute perforated appendicitis with purulent peritonitis # POD#3 s/p open appendectomy CT-confirmed retrocecal appendicitis without abscess; worsening leukocytosis. Patient had ruptured, gangrenous appendicitis with free purulent peritonitis, requiring conversion from laparoscopic to open appendectomy. WBC has normalized. Surgery following closely. Started on carb consistent diet. Plan: * Continue IV antibiotics per surgery (ceftriaxone ? metronidazole) * Monitor for postoperative complications (abscess, ileus, wound infection) * Daily CBC and BMP * Await general surgery recommendations regarding diet advancement and discharge planning # Postoperative pain, limiting mobility # Postoperative ileus/bloating Pain significant with movement; patient declined morphine. Passing minimal flatus, abdomen distended but tolerating liquids. 08/09: Passing flatus, one small BM per patient. Plan: * Continue acetaminophen scheduled * Started colace daily * Start [place] 5/325 mg q6h PRN * Avoid IV opioids if patient prefers * Simethicone PRN * Encourage ambulation as tolerated * Monitor bowel function and abdominal exam * Advance diet per surgery # Urinary Tract Infection UA positive for nitrites, leukocyte esterase, pyuria. Plan: * Continue ceftriaxone * Follow urine culture results * Monitor for signs of sepsis # Hypertension Severely elevated BP on admission 181/75. Worsening this morning pod 3 at 172/109 Plan: * Continued home med of hydrochlorothiazide 25 mg qday * Started losartan 50 mg qday * Monitor BP closely # Type 2 Diabetes Mellitus Hyperglycemia during acute illness. Plan: * Continue insulin sliding scale * Accuchecks AC/HS * Adjust regimen postoperatively # Hypomagnesemia, resolved Plan: * Replete magnesium as needed * Recheck level tomorrow # Left Lower Lobe Pneumonia (early) Incidental finding on CXR. Plan: * Covered with current antibiotics * Monitor respiratory status * Incentive spirometry post-op # Incidental Pulmonary Nodule (4 mm, LLL) Incidental CT finding. Plan: * Outpatient follow-up imaging per Fleischner guidelines * Will document in discharge summary Health Maintenance: Code Status: Full code Diet: Advanced to carb consistent diet DVT Prophylaxis: Per surgery post-op Disposition: Pending SNF placement, most likely tomorrow ----- Plan discussed with attending physician Dr. Mallika Wen MD PGY-1 Internal Medicine .
--- NOTE | 2025-08-09 12:39 | PC.NURSE ---
Made MD willoughby aware of pts current bp of 107/109. pt asymptomatic no complains of chest pain or any discomfort per MD willoughby will take a look at her home meds to restart
[2025-08-09] MEDS: LOSARTAN POTASSIUM 25 MG TABLET 50 MG PO (14:05)
[2025-08-09] MEDS: HYDROcodone/APAP 5/325 TABLET 1 TAB PO (14:06)
[2025-08-09] MEDS: hydrALAZINE INJ 20 MG/ML VIAL 10 MG IVP (23:56)
[2025-08-10] VITALS (8 sets, daily range): BP systolic 139–180; BP diastolic 79–100; PULSE 88–98; RESP 17–24; TEMP 36.2–36.8; O2SAT 93–95
--- NOTE | 2025-08-10 00:33 | PC.NURSE ---
Dr. Umaña notified regarding elevated BP 202/115 with HR 83. New order received for IVP hydralazine x1 and to notify doctor regarding recheck post-admin of med.
[2025-08-10] MEDS: LOSARTAN POTASSIUM 25 MG TABLET 50 MG PO (01:21)
[2025-08-10] MEDS: metroNIDAZOLE/NS 500 MG IVPB 500 MG/100 ML BAG 200 MG IV (05:14)
[2025-08-10] MEDS: SIMETHICONE 80 MG CHEW PO (05:14)
[2025-08-10] MEDS: HEPARIN SOD INJ 5000 UNIT/ML VIAL SC (05:15)
--- NOTE | 2025-08-10 05:36 | PC.NURSE ---
Dr. Umaña notified regarding patient being cool and clammy to touch and new vital signs obtained with BP 175/91 and RR 24; patient afebrile and has not other complaints at this time. Dr stated to continue to monitor.
[2025-08-10] MEDS: DOCUSATE SOD 100 MG CAPSULE PO (09:30)
[2025-08-10] MEDS: cefTRIAXone/D5w 1gm IV premix 1 GM/50 ML BAG IV (09:31)
[2025-08-10] MEDS: LOSARTAN POTASSIUM 25 MG TABLET 100 MG PO (09:31)
[2025-08-10 09:33] LABS: Basophils # (Auto) 0.1 Thou/mm3 (0.0-0.2); Basophils % (Auto) 1 % (0-2.5); Eosinophils # (Auto) 0.1 Thou/mm3 (0.0-0.5); Eosinophils % (Auto) 1 % (0-10); Hematocrit 45.6 % (36.0-46.0); Hemoglobin 15.5 g/dL (12.0-16.0); Immature Granulocytes Auto 0.07 Thou/mm3 (0.00-0.00); Lymphocytes # (Auto) 1.1 Thou/mm3 (1.0-4.8); Lymphocytes % (Auto) 10 % (10-50); Mean Corpuscular HGB Conc 34.0 g/dl (31.0-37.0); Mean Corpuscular Hemoglobin 27.3 pg (25.0-35.0); Mean Corpuscular Volume 80 fL (80-100); Monocytes # (Auto) 0.8 Thou/mm3 (0.0-0.8); Monocytes % (Auto) 7 % (0-12); Neutrophils # (Auto) 9.0 Thou/mm3 (1.8-7.7); Neutrophils % (Auto) 82 % (37-80); Nucleated Red Blood Cell # 0.00 Thou/mm3 (0.00-0.00); Nucleated Red Blood Cell % 0 /100 WBC (0); Platelet Count 271 Thou/mm3 (140-440); RDW Standard Deviation 35.2 fL (36.4-46.3); Red Blood Count 5.67 Miln/mm3 (4.00-5.20); White Blood Count 11.1 Thou/mm3 (3.6-11.0)
--- NOTE | 2025-08-10 09:57 | ESDS_ITS ---
<Statement entered by Tracey Tena MD - 08/18/25 09:14> I reviewed above note and agree with findings and plans. I have also personally examined the patient with medicine team and went over assessment and plan with medical team including safety intern and resident physician. Planned Discharge Date 08/10/25 DS: Providers Provider Date of admission: 08/05/25 23:02 Primary care physician: Barrera Galarza MD Admitting Provider: Jamari Rosales MD Attending Provider on Admission: Tracey Tena MD Consults: 08/05/25 22:38 Consult to General Surgery Stat Comment: Acute appendicitis Consulting Provider: Ayse Amaya 08/05/25 22:45 Referral Physical Therapy Routine Comment: Physician Instructions: Attending Provider on DC: Tracey Tena MD Discharging Provider: Justen Wen MD DS: Diagnosis Problem List Completed Was Problem List Reviewed/Reconciled?: Yes Hospital Course Hospital Course Hospital course: 84-year-old female who was admitted for perforated appendicitis with peritonitis. Initially, an attempted laparoscopic appendectomy was performed; however, the procedure was converted to an open appendectomy due to the extent of rupture and the presence of a large fecalith. The patient had significant exudate and pus in the right lower quadrant and pelvis, which was managed by irrigation and drainage during the procedure. Postoperatively, the patient was stable, with appropriate pain management provided through IV narcotics and oral analgesics. Over the course of her hospitalization, the patient's diet was successfully advanced from clear liquids to a carbohydrate-consistent diet, which she tolerated without issue. She had bowel movement and began passing gas regularly. Physical therapy assisted with her mobilization, and although she had some difficulty getting out of bed initially, she made steady progress and was able to move with less pain. Blood pressure was elevated during the hospitalization, and her home antihypertensive medication, losartan, was increased to 100 mg daily. The patient's hypertension was monitored and managed effectively. There were no signs of postoperative infection, and she was started on oral Colace to help with bowel function. The patient was progressing well overall, and discharge to a [facility] facility (SNF). Diagnosis during admission: # Acute perforated appendicitis with purulent peritonitis # POD#4 s/p open appendectomy # Postoperative pain, limiting mobility # Postoperative ileus/bloating # Urinary Tract Infection # Hypertension # Type 2 Diabetes Mellitus # Hypomagnesemia, resolved # Left Lower Lobe Pneumonia (early) # Incidental Pulmonary Nodule (4 mm, LLL) Discharge instructions: * Follow-up with PCP within 1-2 weeks of discharge. * Follow-up with your PCP regarding incidental 4 mm pulmonary nodule of left lower lobe seen on CT; you may need repeat CT chest in 6 months. * Follow-up with general surgery (Dr. Amaya) within 2 weeks of discharge. * Stop taking FARXIGA because it increases the risk of urinary tract infections. Please discuss with your doctor if you need to start another medication or continue with this medication. * Stop taking HYDROCHLORTHYZIDE 25 mg daily. * Start taking LOSARTAN-HYDROCHLORTHYZIDE daily for elevated blood pressure (NEW) * Continue taking AUGMENTIN as prescribed below for 4 more days. * Continue taking medications as prescribed below. * Return to Emergency Room if symptoms persist, worsen, or new symptoms develop. ----- Plan discussed with attending physician Dr. Mallika Wen MD PGY-1 Internal Medicine Time Spent with Patient Time attestation: Total time spent providing and/or coordinating discharge services: Time spent: Greater than 30 minutes Exam Vital Signs Temp Pulse Resp BP Pulse Ox O2 Del Method O2 Flow Rate 97.6 F 93 17 140/88 H 94 L Nasal Cannula 1 08/10/25 08:00 08/10/25 09:31 08/10/25 08:00 08/10/25 09:31 08/10/25 08:00 08/10/25 08:00 08/10/25 08:00 Narrative Exam General: Awake, alert, appears more comfortable than prior days Cardiac: Regular rate and rhythm Respiratory: Clear to auscultation bilaterally, no distress Abdomen: Soft, postoperative tenderness appropriate, mild distention, passing gas and BM, no rebound or guarding Extremities: No edema Neuro: Alert and oriented ?3 Discharge Plan Plan Patient Disposition: Xfer Skilled Nsg Fac (SNF) Disposition Comment: [facility] Patient condition on transfer: Stable Care Plan Goals: * Follow-up with PCP within 1-2 weeks of discharge. * Follow-up with your PCP regarding incidental 4 mm pulmonary nodule of left lower lobe seen on CT; you may need repeat CT chest in 6 months. * Follow-up with general surgery (Dr. Amaay) within 2 weeks of discharge. * Stop taking FARXIGA because it increases the risk of urinary tract infections. Please discuss with your doctor if you need to start another medication or continue with this medication. * Stop taking HYDROCHLORTHYZIDE 25 mg daily. * Start taking LOSARTAN-HYDROCHLORTHYZIDE daily for elevated blood pressure (NEW) * Continue taking AUGMENTIN as prescribed below for 4 more days. * Continue taking medications as prescribed below. * Return to Emergency Room if symptoms persist, worsen, or new symptoms develop. Prescriptions/Referrals Prescriptions/Med Rec: New losartan-hydrochlorothiazide 100-25 mg tablet 1 tab PO QDAY Qty: 30 0RF amoxicillin-pot clavulanate 875-125 mg tablet 1 tab PO BID 4 Days Qty: 8 0RF Continued potassium chloride 8 mEq tablet extended release 8 meq PO QDAY Patient Comments: TAKE 1 TABLET BY MOUTH EVERY DAY gemfibrozil 600 mg tablet 600 mg PO BID Patient Comments: TAKE 1 TABLET BY MOUTH TWICE A DAY Discontinued hydrochlorothiazide 25 mg tablet 25 mg PO QDAY Patient Comments: TAKE 1 TABLET BY MOUTH EVERY DAY IN THE MORNING FOR 100 DAYS dapagliflozin propanediol [Farxiga] 10 mg tablet 10 mg PO QDAY Patient Comments: TAKE 1 TABLET BY MOUTH EVERY DAY Referrals: Ayse Amaya MD [Physician, General Surgery] Barrera Galarza MD [Primary Care Provider, Family Practice] Patient/Caregiver Discharge Instructions Education Materials: Preventing Surgical Site Infections Print Language: Turkish Stand Alone Forms: Maya Award Info., Patient Portal Info Letter Discharge Order Discharge Orders: Discharge (Routine); Ordered 08/10/25 Ordered By: Alejandra Ohara Quality Discharge Quality Measures VTE prophylaxis
[2025-08-10 10:08] LABS: Alanine Aminotransferase 11 U/L (10-49); Albumin, Serum 4.0 gm/dL (3.4-4.8); Albumin/Globulin Ratio 1.3 (1.2-2.2); Alkaline Phosphatase 87 U/L (46-116); Anion Gap 16 (7-16); Aspartate Amino Transferase 23 U/L (0-34); BUN/Creatinine Ratio 23 Ratio (12-20); Bilirubin,Total 0.4 mg/dL (0.3-1.2); Blood Urea Nitrogen 16 mg/dL (9-23); Calcium 9.2 mg/dL (8.3-10.6); Calcium (Corrected) 9.2 mg/dL (8.5-10.1); Carbon Dioxide 24.1 mMol/L (20.0-31.0); Chloride 92 mMol/L (98-107); Creatinine (Component) 0.7 mg/dL (0.6-1.3); Estimated Creatinine Clearance 58.1 mL/min (>60); Globulin 3.1 gm/dL (2.3-3.5); Glucose 147 mg/dL (74-106); Osmolality,Calculated 268 (275-295); Sodium 132 mMol/L (136-145); Total Protein 7.1 gm/dL (5.7-8.2); eGFR > 60 See Note
[2025-08-10 10:12] LABS: Potassium 2.7 mMol/L (3.4-5.1)
--- NOTE | 2025-08-10 12:18 | PC.SS ---
Addendum entered by Sarah Christopher 08/10/25 12:25: SS met with pt to update on DC plan for today pt in agreement for [facility] to pick her up 1330 Addendum entered by Sarah Christopher 08/10/25 12:19: RN, Lupe and ABDIEL Arenas made aware Original Note: SS reached out to Vanessa with [facility], they can tow picker pt at 1330
== END 2025-08-10 14:20 | disposition skilled nursing facility (03) | DRG 397 ==
LOC: SERX 22:11 → SERHOLD 23:06 → S3NX 23:51 → S3SX 08-06 13:00
PROVIDERS: Surgery; Admitting Provider Student in an Organized Health Care Education/Training Program; Emergency Provider Emergency Medicine; PCP Family Medicine; Visit Provider Internal Medicine
PROC: 0DTJ4ZZ Resection of Appendix, Percutaneous Endoscopic Approach (ICD-10-PCS; CPT 44970; principal; 2025-08-06 09:30)
PROC: (CPT 44950; 2025-08-06 09:30)
DX: K35.201 Acute appendicitis with generalized peritonitis, with perforation, without abscess (principal); J18.9 Pneumonia, unspecified organism; N39.0 Urinary tract infection, site not specified; K91.89 Other postprocedural complications and disorders of digestive system; K56.7 Ileus, unspecified; E11.65 Type 2 diabetes mellitus with hyperglycemia; I10 Essential (primary) hypertension; E78.00 Pure hypercholesterolemia, unspecified; E87.6 Hypokalemia; R91.1 Solitary pulmonary nodule; K56.41 Fecal impaction; E83.42 Hypomagnesemia; E83.51 Hypocalcemia; E83.52 Hypercalcemia; Z53.31 Laparoscopic surgical procedure converted to open procedure; Z79.4 Long term (current) use of insulin; Z90.710 Acquired absence of both cervix and uterus
CPT/HCPCS: 36415; 71045; 74176; 76705; 80048; 80053; 81001; 82150; 82248; 83605; 83690; 83735; 83880; 84145; 84443; 84484; 85025; 85610; 85652; 85730; 86140; 87040; 87077; 87086; 87186; 93005; 96361; 96365; 96375; 97162; 99284; A4217; A4649; C1713; J0131; J0360; J0696; J1100; J1644; J1805; J1885; J2270; J2371; J2405; J3010; J3490; J7120; A9270; J1836